=== PATIENT | female | born 1970 | race Two or more races ===

== ENCOUNTER 2025-05-22 22:15 | Inpatient (IN) | payer MEDICAID ==
[~2025-05-22] VITALS: Ht 157.5 cm; Wt 90.7 kg
[2025-05-22] MEDS ORDERED: MAG HYDROX/AL HYDROX/SIMETH 30 ML UDC PO PRN (22:30)
[2025-05-22] MEDS ORDERED: LORAZEPAM 1 MG TABLET PO PRN (22:30)
[2025-05-22] MEDS ORDERED: MAGNESIUM HYDROXIDE 30 ML UDC PO PRN (22:30)
[2025-05-22] MEDS ORDERED: ACETAMINOPHEN 325 MG TABLET PO PRN (22:30)
[2025-05-22] MEDS ORDERED: LORAZEPAM 0.5 MG TABLET PO PRN (22:30)
[2025-05-22] MEDS ORDERED: ZOLPIDEM TARTRATE 5 MG TABLET PO PRN ×2 (22:30)
[2025-05-22] MEDS ORDERED: FURO40TA5 PO (22:53)
[2025-05-22] MEDS ORDERED: PYRI50TA15 PO (22:53)
[2025-05-22] MEDS ORDERED: ASPI-1169 PO (22:53)
[2025-05-22] MEDS ORDERED: ATOR40TA PO (22:53)
[2025-05-22] MEDS ORDERED: ESCI5TAB PO (22:53)
[2025-05-22] MEDS ORDERED: METO25TA6 PO (22:53)
[2025-05-22] MEDS ORDERED: HYDR-4076 PO (22:53)
[2025-05-22] MEDS ORDERED: GABA300C PO (22:53)
[2025-05-22] MEDS: BLOOD SUGAR DIAGNOSTIC 1 EACH STRIP IN ONE (23:04)
[2025-05-23 00:19] VITALS: BP 167/79; TEMP 97.5; O2SAT 97
[2025-05-23 08:00] VITALS: BP 125/86; TEMP 98.4; O2SAT 97
[2025-05-23 08:27] LABS: ASPARTATE AMINOTRANSFERASE 18.0 U/L (15-37); CALCIUM, SERUM 8.6 mg/dL (8.5-10.1); CREATININE 5.3 mg/dL (0.6-1.3); SODIUM SERUM 137.0 mmol/L (136-145); TOTAL PROTEIN, SERUM 6.6 g/dL (6.4-8.2); UREA NITROGEN, BLOOD 53.0 mg/dL (7-18)
[2025-05-23 08:30] LABS: LDL 85 mg/dL (0-99)
[2025-05-23] MEDS: GABAPENTIN 100 MG CAPSULE PO SCH (13:00)
[2025-05-23] MEDS: CIPROFLOXACIN HCL 250 MG TABLET PO SCH (14:00)
[2025-05-23] MEDS: OLANZAPINE 10 MG VIAL IM STA (14:01)
[2025-05-23] MEDS ORDERED: LORA-259 PO (15:38)
[2025-05-23] MEDS ORDERED: ZOLP5TAB2 PO (15:38)
[2025-05-23] MEDS ORDERED: GABA100C PO (15:38)
[2025-05-23] MEDS ORDERED: MAGN400O6 PO (15:38)
[2025-05-23] MEDS ORDERED: LITH150C PO (15:38)
[2025-05-23] MEDS ORDERED: MAG30ORA PO (15:38)
[2025-05-23] MEDS ORDERED: CIPR500T5 PO (15:38)
[2025-05-23] MEDS ORDERED: ACET325T53 PO (15:38)
[2025-05-23] MEDS ORDERED: LITHIUM CARBONATE 150 MG CAPSULE PO SCH (17:00)
[2025-05-24] MEDS ORDERED: ESCITALOPRAM OXALATE (10 MG) 10 MG TABLET PO SCH (09:00)
== END 2025-05-23 14:49 | disposition short-term general hospital (02) | DRG 753 ==
LOC: GPS 22:15
PROVIDERS: ADMIT Psychiatry & Neurology Psychiatry; ATTEND Nurse Practitioner Acute Care
DX: F31.5 Bipolar disorder, current episode depressed, severe, with psychotic features (principal); F25.0 Schizoaffective disorder, bipolar type; Z73.6 Limitation of activities due to disability
CPT/HCPCS: 36415; 80053-TC; 80061-TC; 82962-TC; 87081-TC; 97116-TC; 97530-TC; J3490

== ENCOUNTER 2025-05-23 15:21 | Inpatient (IN) | payer MEDICAID ==
[~2025-05-23] VITALS: Ht 154.9 cm; Wt 76.7 kg
[~2025-05-23 15:21] MED LIST: ASPI-1169 PO; ATOR40TA PO; ESCI5TAB PO; FURO40TA5 PO; GABA300C PO; HYDR-4076 PO; METO25TA6 PO; PYRI50TA15 PO
[2025-05-23] MEDS ORDERED: GABA100C PO (15:38)
[2025-05-23] MEDS ORDERED: LITH150C PO (15:38)
[2025-05-23] MEDS ORDERED: MAGN400O6 PO (15:38)
[2025-05-23] MEDS ORDERED: LORA-259 PO (15:38)
[2025-05-23] MEDS ORDERED: ZOLP5TAB2 PO (15:38)
[2025-05-23] MEDS ORDERED: ACET325T53 PO (15:38)
[2025-05-23] MEDS ORDERED: CIPR500T5 PO (15:38)
[2025-05-23] MEDS ORDERED: MAG30ORA PO (15:38)
[2025-05-23 20:00] VITALS: BP 134/94; TEMP 97.2; O2SAT 96
[2025-05-23] MEDS: HEPARIN SODIUM, PORCINE 5000 UNITS/1 ML VIAL SQ SCH (21:04)
[2025-05-23] MEDS: IV NS 0.9% 1,000 ML IV PRN (21:12)
[2025-05-23 22:20] VITALS: BP 134/94; TEMP 97.2; O2SAT 96
[2025-05-24 04:00] VITALS: BP 163/99; TEMP 99.3; O2SAT 97
[2025-05-24 06:35] LABS: PLATELET COUNT (AUTO) 194 K/uL (150-450); RED BLOOD CELL COUNT(AUTO) 2.76 MIL/uL (4.0-5.2); RED CELL DISTRIBUTION WIDTH 14.8 % (11.5-15.0); WHITE BLOOD COUNT (AUTO) 6.9 K/uL (4.3-11.0)
[2025-05-24 07:07] LABS: CALCIUM, SERUM 8.0 mg/dL (8.5-10.1); CREATININE 5.1 mg/dL (0.6-1.3); PHOSPHORUS 5.5 mg/dL (2.5-4.9); SODIUM SERUM 141.0 mmol/L (136-145); UREA NITROGEN, BLOOD 52.0 mg/dL (7-18)
[2025-05-24 08:00] VITALS: BP 175/96; TEMP 98.2; O2SAT 95
[2025-05-24 12:00] VITALS: BP 179/107; TEMP 98.7; O2SAT 95
[2025-05-24] MEDS: CITRIC ACID/SODIUM CITRATE (BICITRA)15 ML UDC PO SCH (12:14)
[2025-05-24 16:00] VITALS: BP 175/114; TEMP 98.5; O2SAT 99
[2025-05-24] MEDS: OLANZAPINE 5 MG TABLET PO SCH (17:00)
[2025-05-24] MEDS: NIFEDIPINE XL 60 MG TAB.ER.24 PO SCH (17:30)
[2025-05-24 23:37] LABS: CALCIUM, SERUM 8.6 mg/dL (8.5-10.1); CREATININE 5.0 mg/dL (0.6-1.3); SODIUM SERUM 141.0 mmol/L (136-145); UREA NITROGEN, BLOOD 51.0 mg/dL (7-18)
[2025-05-25 04:00] VITALS: BP 161/97; TEMP 98.1; O2SAT 97
[2025-05-25 08:00] VITALS: BP 120/85; TEMP 98.6; O2SAT 93
[2025-05-25 09:07] LABS: HEPATITIS B SURFACE AB (QUAL) Non Reactive (.)
[2025-05-25 10:08] LABS: *ANA ANTI-CENTROMERE B AB <0.2 AI (0.0-0.9); *ANA ANTI-DNA(DS) AB, QN <1 IU/mL (0-9); *ANA ANTI-JO-1 <0.2 AI (0.0-0.9); *ANA ANTICHROMATIN ANTIBODY <0.2 AI (0.0-0.9); *ANA RNP ANTIBODIES <0.2 AI (0.0-0.9); *ANA SJOGREN'S ANTI-SS-A <0.2 AI (0.0-0.9); *ANA SJOGREN'S ANTI-SS-B <0.2 AI (0.0-0.9); *ANAANTI-SCLERODERMA-70 AB <0.2 AI (0.0-0.9); *ANASMITH AB <0.2 AI (0.0-0.9); COMPLEMENT C3, SERUM 134 mg/dL (82-167); COMPLEMENT C4, SERUM 32 mg/dL (12-38)
[2025-05-25 16:00] VITALS: BP 95/62; TEMP 97.5; O2SAT 95
[2025-05-25 20:00] VITALS: BP 113/79; TEMP 98.2; O2SAT 95
[2025-05-25] MEDS: LORAZEPAM 1 MG TABLET PO PRN (23:32)
[2025-05-25] MEDS: ACETAMINOPHEN 325 MG TABLET PO PRN (23:36)
[2025-05-26] MEDS ORDERED: NITROGLYCERIN 0.4 MG/TAB BOTTLE SL PRN (01:00)
[2025-05-26] MEDS: ASPIRIN 325 MG TABLET PO ONE (01:39)
[2025-05-26 04:00] VITALS: BP 113/79; TEMP 98.2; O2SAT 95
[2025-05-26 06:00] LABS: PLATELET COUNT (AUTO) 262 K/uL (150-450); RED BLOOD CELL COUNT(AUTO) 2.94 MIL/uL (4.0-5.2); RED CELL DISTRIBUTION WIDTH 14.6 % (11.5-15.0); WHITE BLOOD COUNT (AUTO) 9.3 K/uL (4.3-11.0)
[2025-05-26 08:00] VITALS: BP 135/90; TEMP 97.7; O2SAT 96
[2025-05-26 08:28] LABS: ASPARTATE AMINOTRANSFERASE 22.0 U/L (15-37); CALCIUM, SERUM 8.4 mg/dL (8.5-10.1); CREATININE 4.9 mg/dL (0.6-1.3); PHOSPHORUS 5.0 mg/dL (2.5-4.9); SODIUM SERUM 139.0 mmol/L (136-145); TOTAL PROTEIN, SERUM 6.8 g/dL (6.4-8.2); UREA NITROGEN, BLOOD 49.0 mg/dL (7-18)
[2025-05-26] MEDS: ASPIRIN 81 MG TAB.CHEW PO SCH (09:19)
[2025-05-27 04:00] VITALS: BP 109/80; TEMP 98; O2SAT 100
[2025-05-27 08:00] VITALS: BP 101/68; TEMP 98.2
[2025-05-27 13:12] LABS: PTH, INTACT 275 pg/mL (15-65)
[2025-05-27 16:00] VITALS: BP 156/58; TEMP 98.2; O2SAT 96
[2025-05-27 20:00] VITALS: BP 180/75; TEMP 99; O2SAT 97
[2025-05-28 04:00] VITALS: BP 126/90; TEMP 98.4; O2SAT 99
[2025-05-28 06:41] LABS: PLATELET COUNT (AUTO) 227 K/uL (150-450); RED BLOOD CELL COUNT(AUTO) 2.87 MIL/uL (4.0-5.2); RED CELL DISTRIBUTION WIDTH 14.6 % (11.5-15.0); WHITE BLOOD COUNT (AUTO) 6.5 K/uL (4.3-11.0)
[2025-05-28 06:56] LABS: ASPARTATE AMINOTRANSFERASE 20.0 U/L (15-37); CALCIUM, SERUM 8.4 mg/dL (8.5-10.1); CREATININE 5.2 mg/dL (0.6-1.3); PHOSPHORUS 5.0 mg/dL (2.5-4.9); SODIUM SERUM 142.0 mmol/L (136-145); TOTAL PROTEIN, SERUM 6.5 g/dL (6.4-8.2); UREA NITROGEN, BLOOD 50.0 mg/dL (7-18)
[2025-05-28] MEDS: CITRIC ACID/SODIUM CITRATE (BICITRA)15 ML UDC PO SCH (12:06)
[2025-05-28 20:00] VITALS: BP 205/83; TEMP 97.5; O2SAT 96
[2025-05-29 04:00] VITALS: BP 191/71; TEMP 97.3; O2SAT 96
[2025-05-29] MEDS ORDERED: hydrALAZINE HCL IV 20 MG VIAL IV PRN (06:00)
[2025-05-29 08:00] VITALS: O2SAT 94
[2025-05-29 13:14] VITALS: O2SAT 96
[2025-05-29 16:00] VITALS: TEMP 97.7; O2SAT 98
[2025-05-29 19:06] LABS: *ANCA ATYPICAL p-ANCA <1:20 titer (Neg:<1:20); *ANCA CYTOPLASMIC (C-ANCA) <1:20 titer (Neg:<1:20); *ANCA PERINUCLEAR (P-ANCA) <1:20 titer (Neg:<1:20)
[2025-05-30] MEDS: HYDROCODONE/APAP 5/325MG TABLET PO PRN (01:13)
[2025-05-30] MEDS: OLANZAPINE 10 MG VIAL IM ONE (17:10)
[2025-05-30 20:00] VITALS: BP 229/120; TEMP 99.7; O2SAT 95
[2025-05-31 04:00] VITALS: BP 228/103; TEMP 98.2; O2SAT 98
[2025-05-31 08:40] VITALS: BP 229/120; TEMP 99.7; O2SAT 95
[2025-05-31 16:00] VITALS: BP 229/120; O2SAT 95
[2025-05-31 20:00] VITALS: BP 229/120; TEMP 99.7; O2SAT 95
[2025-05-31 22:47] VITALS: BP 149/71; TEMP 98.2; O2SAT 95
[2025-06-01 04:00] VITALS: BP 169/87
[2025-06-01 08:00] VITALS: BP 140/91; TEMP 98.3; O2SAT 95
[2025-06-01] MEDS: OLANZAPINE 10 MG VIAL IM ONE (09:26)
[2025-06-01] MEDS: LORAZEPAM INJ 2 MG/ML VIAL IM ONE (09:47)
[2025-06-01] MEDS ORDERED: LORAZEPAM 1 MG TABLET PO PRN (10:00)
[2025-06-01] MEDS: OLANZAPINE 10 MG VIAL IM PRN (14:49)
[2025-06-01 16:00] VITALS: BP 132/84; TEMP 98.3; O2SAT 95
[2025-06-02] MEDS: TEMAZEPAM 15 MG CAPSULE PO PRN (00:29)
[2025-06-03 08:00] VITALS: BP 157/78; TEMP 97.7; O2SAT 97
[2025-06-03 16:00] VITALS: BP 140/51; TEMP 97.9; O2SAT 99
[2025-06-03 20:00] VITALS: BP 140/51; TEMP 97.9; O2SAT 99
[2025-06-04 04:00] VITALS: BP 140/51; TEMP 97; O2SAT 99
[2025-06-04 07:05] LABS: CALCIUM, SERUM 7.9 mg/dL (8.5-10.1); CREATININE 5.6 mg/dL (0.6-1.3); SODIUM SERUM 141.0 mmol/L (136-145); UREA NITROGEN, BLOOD 52.0 mg/dL (7-18)
[2025-06-04 07:07] LABS: PLATELET COUNT (AUTO) 304 K/uL (150-450); RED BLOOD CELL COUNT(AUTO) 2.82 MIL/uL (4.0-5.2); RED CELL DISTRIBUTION WIDTH 14.3 % (11.5-15.0); WHITE BLOOD COUNT (AUTO) 7.5 K/uL (4.3-11.0)
[2025-06-04 08:00] VITALS: BP 158/79; TEMP 97.9; O2SAT 96
[2025-06-04 16:00] VITALS: BP 143/69; TEMP 98; O2SAT 94
[2025-06-04 20:00] VITALS: BP 162/72; TEMP 98.6; O2SAT 97
[2025-06-05 04:00] VITALS: BP 153/71; TEMP 98.2; O2SAT 96
[2025-06-05 07:30] VITALS: BP 138/67; TEMP 98.1; O2SAT 97
[2025-06-05 08:00] VITALS: BP 138/67; TEMP 98.1; O2SAT 97
[2025-06-05 15:55] VITALS: BP 120/72; TEMP 98.4; O2SAT 93
[2025-06-05 16:00] VITALS: BP 120/72; TEMP 98.4; O2SAT 93
[2025-06-06 04:00] VITALS: BP 151/79; TEMP 97.8; O2SAT 96
[2025-06-06 07:23] LABS: CALCIUM, SERUM 8.1 mg/dL (8.5-10.1); CREATININE 5.3 mg/dL (0.6-1.3); SODIUM SERUM 147.0 mmol/L (136-145); UREA NITROGEN, BLOOD 47.0 mg/dL (7-18)
[2025-06-06 07:26] LABS: PLATELET COUNT (AUTO) 280 K/uL (150-450); RED BLOOD CELL COUNT(AUTO) 2.61 MIL/uL (4.0-5.2); RED CELL DISTRIBUTION WIDTH 14.0 % (11.5-15.0); WHITE BLOOD COUNT (AUTO) 7.0 K/uL (4.3-11.0)
[2025-06-06 08:00] VITALS: BP 147/73; TEMP 98.1; O2SAT 93
[2025-06-06 15:07] LABS: *SPE A/G RATIO 0.5 (0.7-1.7); *SPE ALBUMIN 2.0 g/dL (2.9-4.4); *SPE ALPHA-1-GLOBULIN 0.3 g/dL (0.0-0.4); *SPE ALPHA-2-GLOBULIN 1.1 g/dL (0.4-1.0); *SPE BETA GLOBULIN 1.0 g/dL (0.7-1.3); *SPE GLOBULIN, TOTAL 3.7 g/dL (2.2-3.9); *SPE M-SPIKE Not Observed g/dL (Not Observed); *SPE PROTEIN TOTAL 5.7 g/dL (6.0-8.5); *SPEGAMMA GLOBULIN 1.2 g/dL (0.4-1.8)
[2025-06-06 16:00] VITALS: BP 148/76; TEMP 98.3; O2SAT 95
[2025-06-06 20:00] VITALS: BP 167/62; TEMP 98; O2SAT 100
[2025-06-07 04:00] VITALS: BP 168/75; TEMP 98.2; O2SAT 100
[2025-06-07 07:32] LABS: PLATELET COUNT (AUTO) 320 K/uL (150-450); RED BLOOD CELL COUNT(AUTO) 2.64 MIL/uL (4.0-5.2); RED CELL DISTRIBUTION WIDTH 14.0 % (11.5-15.0); WHITE BLOOD COUNT (AUTO) 8.1 K/uL (4.3-11.0)
[2025-06-07 08:00] VITALS: BP 182/73; TEMP 98; O2SAT 94
[2025-06-07 08:20] LABS: ASPARTATE AMINOTRANSFERASE 17.0 U/L (15-37); CALCIUM, SERUM 8.6 mg/dL (8.5-10.1); CREATININE 5.7 mg/dL (0.6-1.3); PHOSPHORUS 6.0 mg/dL (2.5-4.9); SODIUM SERUM 145.0 mmol/L (136-145); TOTAL PROTEIN, SERUM 6.5 g/dL (6.4-8.2); UREA NITROGEN, BLOOD 43.0 mg/dL (7-18)
[2025-06-07] MEDS ORDERED: CLONIDINE HCL 0.1 MG TABLET PO PRN (09:00)
[2025-06-07 16:00] VITALS: BP 128/84; TEMP 98; O2SAT 98
[2025-06-07 16:46] VITALS: BP 163/92; TEMP 97.6; O2SAT 94
[2025-06-07 20:00] VITALS: BP 145/96; TEMP 98.4; TEMP 99; O2SAT 95
[2025-06-08 04:00] VITALS: BP 126/100; TEMP 98; O2SAT 98
[2025-06-08 06:53] LABS: PLATELET COUNT (AUTO) 364 K/uL (150-450); RED BLOOD CELL COUNT(AUTO) 2.73 MIL/uL (4.0-5.2); RED CELL DISTRIBUTION WIDTH 14.1 % (11.5-15.0); WHITE BLOOD COUNT (AUTO) 9.5 K/uL (4.3-11.0)
[2025-06-08 07:16] LABS: ASPARTATE AMINOTRANSFERASE 20.0 U/L (15-37); CALCIUM, SERUM 8.2 mg/dL (8.5-10.1); CREATININE 6.0 mg/dL (0.6-1.3); PHOSPHORUS 5.8 mg/dL (2.5-4.9); SODIUM SERUM 140.0 mmol/L (136-145); TOTAL PROTEIN, SERUM 7.2 g/dL (6.4-8.2); UREA NITROGEN, BLOOD 47.0 mg/dL (7-18)
[2025-06-08 08:00] VITALS: BP 154/68; TEMP 97.7; O2SAT 94
[2025-06-08 13:57] VITALS: BP 139/70; TEMP 98; O2SAT 94
[2025-06-08] MEDS: SEVELAMER CARBONATE 800 MG TABLET PO SCH (14:02)
[2025-06-08 16:00] VITALS: BP 159/64; TEMP 98.2; O2SAT 95
[2025-06-08 16:06] VITALS: BP 159/64; TEMP 98.2; O2SAT 95
[2025-06-08 20:00] VITALS: BP 150/95; TEMP 98.1; O2SAT 97
[2025-06-09 04:00] VITALS: BP 149/61
[2025-06-09 08:00] VITALS: BP 141/79; TEMP 98.4; O2SAT 95
[2025-06-09 08:16] LABS: ASPARTATE AMINOTRANSFERASE 21.0 U/L (15-37); CALCIUM, SERUM 8.3 mg/dL (8.5-10.1); CREATININE 6.0 mg/dL (0.6-1.3); PHOSPHORUS 5.1 mg/dL (2.5-4.9); SODIUM SERUM 141.0 mmol/L (136-145); TOTAL PROTEIN, SERUM 6.5 g/dL (6.4-8.2); UREA NITROGEN, BLOOD 51.0 mg/dL (7-18)
[2025-06-09 09:01] LABS: PLATELET COUNT (AUTO) 305 K/uL (150-450); RED BLOOD CELL COUNT(AUTO) 2.80 MIL/uL (4.0-5.2); RED CELL DISTRIBUTION WIDTH 14.0 % (11.5-15.0); WHITE BLOOD COUNT (AUTO) 16.6 K/uL (4.3-11.0)
[2025-06-09 20:00] VITALS: BP 136/71; TEMP 98.1; O2SAT 95
[2025-06-10 08:00] VITALS: BP 106/59; TEMP 98.4; O2SAT 98
[2025-06-10 08:01] LABS: CREATININE 5.7 mg/dL (0.6-1.3); PHOSPHORUS 4.4 mg/dL (2.5-4.9); SODIUM SERUM 143.0 mmol/L (136-145); UREA NITROGEN, BLOOD 48.0 mg/dL (7-18)
[2025-06-10 08:07] LABS: PLATELET COUNT (AUTO) 236 K/uL (150-450); RED BLOOD CELL COUNT(AUTO) 2.26 MIL/uL (4.0-5.2); RED CELL DISTRIBUTION WIDTH 14.0 % (11.5-15.0); WHITE BLOOD COUNT (AUTO) 11.9 K/uL (4.3-11.0)
[2025-06-10 08:37] LABS: CALCIUM, SERUM 8.4 mg/dL (8.5-10.1)
[2025-06-10 09:00] VITALS: BP 106/59; TEMP 98.4; O2SAT 98
[2025-06-10] MEDS: POTASSIUM CHLORIDE 20 MEQ TAB.PRT.SR PO ONE (10:10)
[2025-06-10] MEDS: EPOETIN ALFA (10,000 UNIT) 10,000 UNIT/ML VIAL SQ ONE (11:08)
[2025-06-10 11:14] LABS: LYMPHOCYTES % (MANUAL) 4 % (16-48); MONOCYTES % (MANUAL) 2 % (0-11.0); NEUTROPHILS % (MANUAL) 94 (42-76)
[2025-06-10 11:15] LABS: PLATELET ESTIMATE ADEQUATE
[2025-06-10 16:00] VITALS: BP 127/78; TEMP 99.1; O2SAT 98
[2025-06-10 20:36] VITALS: BP 149/98; TEMP 97.9; O2SAT 94
[2025-06-10 21:00] VITALS: BP 149/98; TEMP 97.9; O2SAT 94
[2025-06-11 07:00] LABS: PLATELET COUNT (AUTO) 225 K/uL (150-450); RED BLOOD CELL COUNT(AUTO) 2.45 MIL/uL (4.0-5.2); RED CELL DISTRIBUTION WIDTH 14.0 % (11.5-15.0); WHITE BLOOD COUNT (AUTO) 10.3 K/uL (4.3-11.0)
[2025-06-11 07:07] LABS: ASPARTATE AMINOTRANSFERASE 36.0 U/L (15-37); CALCIUM, SERUM 8.2 mg/dL (8.5-10.1); CREATININE 5.5 mg/dL (0.6-1.3); PHOSPHORUS 4.4 mg/dL (2.5-4.9); SODIUM SERUM 139.0 mmol/L (136-145); TOTAL PROTEIN, SERUM 6.3 g/dL (6.4-8.2); UREA NITROGEN, BLOOD 42.0 mg/dL (7-18)
[2025-06-11 08:00] VITALS: BP 158/63; TEMP 98.1; O2SAT 95
[2025-06-11 16:00] VITALS: BP 125/90; TEMP 98.1; O2SAT 95
[2025-06-11 20:00] VITALS: BP 156/92; TEMP 98.2; O2SAT 96
[2025-06-11 21:13] VITALS: BP 156/92; TEMP 98.2; O2SAT 96
[2025-06-12] VITALS (33 sets, daily range): BP systolic 64–174; BP diastolic 33–89; TEMP 98.1–98.4; O2SAT 91–100
[2025-06-12 08:38] LABS: ABG BASE EXCESS 3.9 mmol/L (-2.0-3.0); ABG OXYGEN SATURATION 98.8 % (94.0-98.0); ABG PCO2 43.5 mmHg (32.0-45.0); ABG PH 7.434 (7.350-7.450); ABG PO2 171.0 mmHg (83.0-108.0); ABG TOTAL HEMOGLOBIN 7.4 G/dL (12.0-16.0); FLOW, BLOOD GAS 15.00 L/min (0.00-30.00); FRACTIONATED INSPIRED OXYGEN 100.0 %; SITE, ABG RIGHT RADIAL
[2025-06-12 16:45] LABS: CALCIUM, SERUM 8.8 mg/dL (8.5-10.1); CREATININE 5.9 mg/dL (0.6-1.3); SODIUM SERUM 147.0 mmol/L (136-145); UREA NITROGEN, BLOOD 47.0 mg/dL (7-18)
[2025-06-12 17:04] LABS: PLATELET COUNT (AUTO) 238 K/uL (150-450); RED BLOOD CELL COUNT(AUTO) 2.17 MIL/uL (4.0-5.2); RED CELL DISTRIBUTION WIDTH 14.0 % (11.5-15.0); WHITE BLOOD COUNT (AUTO) 7.9 K/uL (4.3-11.0)
[2025-06-12] MEDS: PROPOFOL 100 ML IV PRN (17:18)
[2025-06-12] MEDS: PHENYLEPHRINE 100 MG in IV NS 0.9% 240 ML IV PRN (18:38)
[2025-06-12] MEDS: ALTEPLASE CATHFLO 2 MG/VIAL XX ONE (19:38)
[2025-06-12 20:17] LABS: ABG BASE EXCESS 6.7 mmol/L (-2.0-3.0); ABG OXYGEN SATURATION 99.1 % (94.0-98.0); ABG PCO2 39.4 mmHg (32.0-45.0); ABG PH 7.505 (7.350-7.450); ABG PO2 232.2 mmHg (83.0-108.0); ABG TOTAL HEMOGLOBIN 7.1 G/dL (12.0-16.0); FRACTIONATED INSPIRED OXYGEN 100.0 %; PEEP,BG 0 cm H2O; SET RATE, BG 18.0; SITE, ABG LEFT RADIAL; VT, ABG 500 mL
[2025-06-12] MEDS ORDERED: CALCIUM CHLORIDE 1,000 MG/10 ML DISP.SYRIN IV ONE (20:24)
[2025-06-12] MEDS ORDERED: SODIUM BICARBONATE SYR 50 MEQ/50 ML DISP.SYRIN IV ONE (20:25)
[2025-06-12] MEDS ORDERED: EPINEPHRINE (1:10,000) SYRINGE 1 MG/10 ML DISP.SYRIN IVP ONE (20:25)
[2025-06-12 20:26] LABS: LYMPHOCYTES % (MANUAL) 15 % (16-48); MONOCYTES % (MANUAL) 7 % (0-11.0); NEUTROPHILS % (MANUAL) 78 (42-76); PLATELET ESTIMATE ADEQUATE
[2025-06-13] VITALS (49 sets, daily range): BP systolic 102–149; BP diastolic 47–88; TEMP 97.9–98.3; O2SAT 50–100
[2025-06-13] MEDS: ONDANSETRON HCL/PF 4 MG/2 ML VIAL IVP PRN (03:08)
[2025-06-13 04:34] LABS: PLATELET COUNT (AUTO) 185 K/uL (150-450); RED BLOOD CELL COUNT(AUTO) 2.28 MIL/uL (4.0-5.2); RED CELL DISTRIBUTION WIDTH 14.6 % (11.5-15.0); WHITE BLOOD COUNT (AUTO) 10.8 K/uL (4.3-11.0)
[2025-06-13 04:37] LABS: ASPARTATE AMINOTRANSFERASE 45.0 U/L (15-37); CALCIUM, SERUM 8.5 mg/dL (8.5-10.1); CREATININE 3.4 mg/dL (0.6-1.3); PHOSPHORUS 3.2 mg/dL (2.5-4.9); SODIUM SERUM 138.0 mmol/L (136-145); TOTAL PROTEIN, SERUM 6.3 g/dL (6.4-8.2); UREA NITROGEN, BLOOD 25.0 mg/dL (7-18)
[2025-06-13 05:20] LABS: EOSINOPHILS % (MANUAL) 1 % (0-4); LYMPHOCYTES % (MANUAL) 7 % (16-48); MONOCYTES % (MANUAL) 3 % (0-11.0); NEUTROPHILS % (MANUAL) 89 (42-76); PLATELET ESTIMATE ADEQUATE
[2025-06-13] MEDS ORDERED: PIPERACILLIN /TAZOBACTAM 3.375 G in IV D5W 50 ML IV SCH (14:00)
[2025-06-13] MEDS: PIPERACILLIN /TAZOBACTAM 2.25 G in IV D5W 50 ML IV SCH (15:17)
[2025-06-14] VITALS (25 sets, daily range): BP systolic 69–138; BP diastolic 54–95; TEMP 98.1–98.9; O2SAT 92–99
[2025-06-14 04:13] LABS: PLATELET COUNT (AUTO) 223 K/uL (150-450); RED BLOOD CELL COUNT(AUTO) 2.49 MIL/uL (4.0-5.2); RED CELL DISTRIBUTION WIDTH 14.9 % (11.5-15.0); WHITE BLOOD COUNT (AUTO) 9.7 K/uL (4.3-11.0)
[2025-06-14 04:29] LABS: ASPARTATE AMINOTRANSFERASE 28.0 U/L (15-37); CALCIUM, SERUM 8.2 mg/dL (8.5-10.1); CREATININE 4.9 mg/dL (0.6-1.3); PHOSPHORUS 3.4 mg/dL (2.5-4.9); SODIUM SERUM 144.0 mmol/L (136-145); TOTAL PROTEIN, SERUM 5.8 g/dL (6.4-8.2); UREA NITROGEN, BLOOD 31.0 mg/dL (7-18)
[2025-06-14] MEDS: POTASSIUM CL. PREMIX PERIPHER. 50 ML IV SCH (09:30)
[2025-06-14] MEDS: EPOETIN ALFA (10,000 UNIT) 10,000 UNIT/ML VIAL SQ SCH (14:19)
[2025-06-14 14:35] LABS: ABG BASE EXCESS 8.4 mmol/L (-2.0-3.0); ABG OXYGEN SATURATION 93.5 % (94.0-98.0); ABG PCO2 38.2 mmHg (32.0-45.0); ABG PH 7.536 (7.350-7.450); ABG PO2 68.1 mmHg (83.0-108.0); ABG TOTAL HEMOGLOBIN 8.5 G/dL (12.0-16.0); FRACTIONATED INSPIRED OXYGEN 40.0 %; PEEP,BG 0 cm H2O; SET RATE, BG 18.0; SITE, ABG RIGHT RADIAL; VT, ABG 450 mL
[2025-06-15] VITALS (50 sets, daily range): BP systolic 66–134; BP diastolic 49–92; TEMP 97.7–98.8; O2SAT 95–100
[2025-06-15] MEDS ORDERED: DEXTROSE 50%-WATER 50 ML DISP.SYRIN IVP PRN (04:00)
[2025-06-15 04:09] LABS: PLATELET COUNT (AUTO) 239 K/uL (150-450); RED BLOOD CELL COUNT(AUTO) 2.56 MIL/uL (4.0-5.2); RED CELL DISTRIBUTION WIDTH 14.5 % (11.5-15.0); WHITE BLOOD COUNT (AUTO) 11.6 K/uL (4.3-11.0)
[2025-06-15 04:20] LABS: ASPARTATE AMINOTRANSFERASE 24.0 U/L (15-37); CALCIUM, SERUM 8.0 mg/dL (8.5-10.1); CREATININE 3.6 mg/dL (0.6-1.3); PHOSPHORUS 2.8 mg/dL (2.5-4.9); SODIUM SERUM 142.0 mmol/L (136-145); TOTAL PROTEIN, SERUM 6.1 g/dL (6.4-8.2); UREA NITROGEN, BLOOD 20.0 mg/dL (7-18)
[2025-06-15] MEDS: DEXTROSE 50%-WATER 50 ML DISP.SYRIN IVP ONE (04:21)
[2025-06-15] MEDS: SEVELAMER CARBONATE 800 MG POWD.PACK GT SCH (09:26)
[2025-06-15] MEDS: PHENYLEPHRINE 100 MG in IV NS 0.9% 240 ML IV PRN (13:17)
[2025-06-15] MEDS: PHENYLEPHRINE 50 MG in IV NS 0.9% 245 ML IV PRN (19:03)
[2025-06-16] VITALS (76 sets, daily range): BP systolic 85–148; BP diastolic 45–118; TEMP 98.6–100; O2SAT 96–100
[2025-06-16] MEDS: ALTEPLASE CATHFLO 2 MG/VIAL XX ONE (00:43)
[2025-06-16 04:28] LABS: PLATELET COUNT (AUTO) 249 K/uL (150-450); RED BLOOD CELL COUNT(AUTO) 2.52 MIL/uL (4.0-5.2); RED CELL DISTRIBUTION WIDTH 14.5 % (11.5-15.0); WHITE BLOOD COUNT (AUTO) 10.8 K/uL (4.3-11.0)
[2025-06-16 04:43] LABS: ASPARTATE AMINOTRANSFERASE 19.0 U/L (15-37); CALCIUM, SERUM 7.5 mg/dL (8.5-10.1); CREATININE 4.7 mg/dL (0.6-1.3); PHOSPHORUS 4.3 mg/dL (2.5-4.9); SODIUM SERUM 144.0 mmol/L (136-145); TOTAL PROTEIN, SERUM 5.9 g/dL (6.4-8.2); UREA NITROGEN, BLOOD 24.0 mg/dL (7-18)
[2025-06-16] MEDS: HEPARIN SODIUM, PORCINE 1,000 UNIT/ML VIAL IV PRN (13:29)
[2025-06-16] MEDS: NEPRO 1,000 ML BOTTLE GT PRN (18:24)
[2025-06-17] VITALS (62 sets, daily range): BP systolic 85–174; BP diastolic 59–94; TEMP 98.5–99.4; O2SAT 8–100
[2025-06-17 04:29] LABS: PLATELET COUNT (AUTO) 251 K/uL (150-450); RED BLOOD CELL COUNT(AUTO) 2.34 MIL/uL (4.0-5.2); RED CELL DISTRIBUTION WIDTH 14.6 % (11.5-15.0); WHITE BLOOD COUNT (AUTO) 9.2 K/uL (4.3-11.0)
[2025-06-17 04:42] LABS: ASPARTATE AMINOTRANSFERASE 18.0 U/L (15-37); CALCIUM, SERUM 7.9 mg/dL (8.5-10.1); CREATININE 3.7 mg/dL (0.6-1.3); PHOSPHORUS 4.6 mg/dL (2.5-4.9); SODIUM SERUM 139.0 mmol/L (136-145); TOTAL PROTEIN, SERUM 5.8 g/dL (6.4-8.2); UREA NITROGEN, BLOOD 18.0 mg/dL (7-18)
[2025-06-17 05:47] LABS: EOSINOPHILS % (MANUAL) 6 % (0-4); LYMPHOCYTES % (MANUAL) 15 % (16-48); MONOCYTES % (MANUAL) 5 % (0-11.0); NEUTROPHILS % (MANUAL) 74 (42-76); PLATELET ESTIMATE ADEQUATE
[2025-06-17] MEDS: ALBUMIN 25% 25 GM in PREMIX 1 EA IV PRN (15:35)
[2025-06-17] MEDS: HEPARIN SODIUM, PORCINE 1000 UNIT/1 ML VIAL IV ONE (19:23)
[2025-06-18] VITALS (64 sets, daily range): BP systolic 98–151; BP diastolic 61–117; TEMP 98–98.6; O2SAT 91–100
[2025-06-18 04:39] LABS: PLATELET COUNT (AUTO) 258 K/uL (150-450); RED BLOOD CELL COUNT(AUTO) 2.50 MIL/uL (4.0-5.2); RED CELL DISTRIBUTION WIDTH 14.5 % (11.5-15.0); WHITE BLOOD COUNT (AUTO) 9.6 K/uL (4.3-11.0)
[2025-06-18 04:53] LABS: ASPARTATE AMINOTRANSFERASE 23.0 U/L (15-37); CALCIUM, SERUM 8.3 mg/dL (8.5-10.1); CREATININE 3.4 mg/dL (0.6-1.3); PHOSPHORUS 4.3 mg/dL (2.5-4.9); SODIUM SERUM 141.0 mmol/L (136-145); TOTAL PROTEIN, SERUM 6.5 g/dL (6.4-8.2); UREA NITROGEN, BLOOD 15.0 mg/dL (7-18)
[2025-06-18] MEDS ORDERED: Z GUARD REMEDY 4 OZ OINT TP PRN (08:00)
[2025-06-18] MEDS: POTASSIUM CHLORIDE 20 MEQ POWDER PACKET GT ONE (08:55)
[2025-06-18] MEDS: Z GUARD REMEDY 4 OZ OINT TP SCH (08:55)
[2025-06-18 08:59] LABS: ABG BASE EXCESS 4.3 mmol/L (-2.0-3.0); ABG OXYGEN SATURATION 97.4 % (94.0-98.0); ABG PCO2 37.6 mmHg (32.0-45.0); ABG PH 7.488 (7.350-7.450); ABG PO2 101.8 mmHg (83.0-108.0); ABG TOTAL HEMOGLOBIN 8.8 G/dL (12.0-16.0); FRACTIONATED INSPIRED OXYGEN 40.0 %; PEEP,BG 5 cm H2O; SET RATE, BG 4.0; SITE, ABG RIGHT RADIAL
[2025-06-18] MEDS: CEFTRIAXONE 1 G in IV D5W 50 ML IV SCH (14:08)
[2025-06-19] VITALS (31 sets, daily range): BP systolic 83–141; BP diastolic 46–94; TEMP 98–99.1; O2SAT 87–100
[2025-06-19 04:01] LABS: PLATELET COUNT (AUTO) 283 K/uL (150-450); RED BLOOD CELL COUNT(AUTO) 2.85 MIL/uL (4.0-5.2); RED CELL DISTRIBUTION WIDTH 14.7 % (11.5-15.0); WHITE BLOOD COUNT (AUTO) 10.3 K/uL (4.3-11.0)
[2025-06-19 04:14] LABS: ASPARTATE AMINOTRANSFERASE 23.0 U/L (15-37); CALCIUM, SERUM 8.3 mg/dL (8.5-10.1); CREATININE 4.7 mg/dL (0.6-1.3); PHOSPHORUS 4.7 mg/dL (2.5-4.9); SODIUM SERUM 147.0 mmol/L (136-145); TOTAL PROTEIN, SERUM 6.6 g/dL (6.4-8.2); UREA NITROGEN, BLOOD 22.0 mg/dL (7-18)
[2025-06-19] MEDS: ALTEPLASE CATHFLO 2 MG/VIAL XX ONE (18:28)
[2025-06-19] MEDS: NEPRO 1,000 ML BOTTLE GT PRN (18:57)
[2025-06-20] VITALS (44 sets, daily range): BP systolic 78–139; BP diastolic 56–92; TEMP 98.4–99.2; O2SAT 87–100
[2025-06-20 04:29] LABS: PLATELET COUNT (AUTO) 309 K/uL (150-450); RED BLOOD CELL COUNT(AUTO) 2.73 MIL/uL (4.0-5.2); RED CELL DISTRIBUTION WIDTH 14.9 % (11.5-15.0); WHITE BLOOD COUNT (AUTO) 12.8 K/uL (4.3-11.0)
[2025-06-20 04:39] LABS: ASPARTATE AMINOTRANSFERASE 20.0 U/L (15-37); CALCIUM, SERUM 8.7 mg/dL (8.5-10.1); CREATININE 5.1 mg/dL (0.6-1.3); PHOSPHORUS 5.1 mg/dL (2.5-4.9); SODIUM SERUM 147.0 mmol/L (136-145); TOTAL PROTEIN, SERUM 6.5 g/dL (6.4-8.2); UREA NITROGEN, BLOOD 24.0 mg/dL (7-18)
[2025-06-20] MEDS ORDERED: CLONIDINE HCL 0.1 MG TABLET GT PRN (07:08)
[2025-06-20] MEDS: ASPIRIN 81 MG TAB.CHEW GT SCH (08:07)
[2025-06-20] MEDS: CITRIC ACID/SODIUM CITRATE (BICITRA)15 ML UDC GT SCH (08:07)
[2025-06-20] MEDS: POTASSIUM CHLORIDE 20 MEQ POWDER PACKET GT ONE (10:39)
[2025-06-20] MEDS ORDERED: HEPARIN-LOCK FLUSH PORCINE PF 100 UNITS/1 ML (10 ML)DISP.SYRIN IV PRN ×2 (17:30)
[2025-06-20] MEDS: HEPARIN-LOCK FLUSH PORCINE PF 100 UNITS/1 ML (10 ML)DISP.SYRIN IV PRN (20:03)
[2025-06-21] VITALS (21 sets, daily range): BP systolic 79–125; BP diastolic 59–93; TEMP 98–99.9; O2SAT 92–98
[2025-06-21] MEDS: HYDROCODONE/APAP 5/325MG TABLET GT PRN (02:08)
[2025-06-21 04:16] LABS: PLATELET COUNT (AUTO) 305 K/uL (150-450); RED BLOOD CELL COUNT(AUTO) 2.55 MIL/uL (4.0-5.2); RED CELL DISTRIBUTION WIDTH 14.7 % (11.5-15.0); WHITE BLOOD COUNT (AUTO) 11.3 K/uL (4.3-11.0)
[2025-06-21 04:31] LABS: ASPARTATE AMINOTRANSFERASE 16.0 U/L (15-37); CALCIUM, SERUM 8.6 mg/dL (8.5-10.1); CREATININE 3.9 mg/dL (0.6-1.3); PHOSPHORUS 3.6 mg/dL (2.5-4.9); SODIUM SERUM 141.0 mmol/L (136-145); TOTAL PROTEIN, SERUM 6.7 g/dL (6.4-8.2); UREA NITROGEN, BLOOD 16.0 mg/dL (7-18)
[2025-06-21 05:08] LABS: FOLIC ACID 7.8 ng/mL (>3.0); T3, FREE 1.2 pg/mL (2.0-4.4)
[2025-06-21] MEDS: HEPARIN SODIUM, PORCINE 1000 UNIT/1 ML VIAL IV PRN (19:28)
[2025-06-21] MEDS ORDERED: ALBUMIN 25% 100 ML IV ONE (20:40)
[2025-06-22] VITALS: BP 117/78; TEMP 99.5; O2SAT 97
[2025-06-22 04:00] VITALS: BP 92/59; TEMP 99.3; O2SAT 93
[2025-06-22 07:34] LABS: PLATELET COUNT (AUTO) 367 K/uL (150-450); RED BLOOD CELL COUNT(AUTO) 2.84 MIL/uL (4.0-5.2); RED CELL DISTRIBUTION WIDTH 15.2 % (11.5-15.0); WHITE BLOOD COUNT (AUTO) 13.4 K/uL (4.3-11.0)
[2025-06-22 08:00] VITALS: BP 90/48; TEMP 99; O2SAT 94
[2025-06-22 08:00] LABS: ASPARTATE AMINOTRANSFERASE 23.0 U/L (15-37); CALCIUM, SERUM 9.3 mg/dL (8.5-10.1); CREATININE 4.4 mg/dL (0.6-1.3); PHOSPHORUS 4.0 mg/dL (2.5-4.9); SODIUM SERUM 138.0 mmol/L (136-145); TOTAL PROTEIN, SERUM 7.2 g/dL (6.4-8.2); UREA NITROGEN, BLOOD 21.0 mg/dL (7-18)
[2025-06-22] MEDS: MIDODRINE HCL (5MG) 5 MG TABLET PO ONE (09:17)
[2025-06-22 12:00] VITALS: BP 93/72; TEMP 98.9; O2SAT 95
[2025-06-22 16:00] VITALS: BP 109/70; TEMP 99.1; O2SAT 95
[2025-06-22 20:00] VITALS: BP 107/66; TEMP 98.1; O2SAT 99
[2025-06-23] VITALS: BP 113/77; TEMP 99.3; O2SAT 100
[2025-06-23 04:00] VITALS: BP 108/86; TEMP 99.5; O2SAT 97
[2025-06-23 08:00] VITALS: BP 92/61; TEMP 98.1; O2SAT 97
[2025-06-23 16:00] VITALS: BP 124/74; TEMP 98.3; O2SAT 95
[2025-06-23 20:00] VITALS: BP 113/92; TEMP 98.2; O2SAT 98
[2025-06-23] MEDS: LORAZEPAM 1 MG TABLET GT PRN (22:37)
[2025-06-24 05:00] VITALS: BP 124/96; TEMP 97.7; O2SAT 94
[2025-06-24 07:31] LABS: CALCIUM, SERUM 9.4 mg/dL (8.5-10.1); CREATININE 6.5 mg/dL (0.6-1.3); PHOSPHORUS 5.2 mg/dL (2.5-4.9); SODIUM SERUM 141.0 mmol/L (136-145); UREA NITROGEN, BLOOD 28.0 mg/dL (7-18)
[2025-06-24 07:36] LABS: PLATELET COUNT (AUTO) 487 K/uL (150-450); RED BLOOD CELL COUNT(AUTO) 3.03 MIL/uL (4.0-5.2); RED CELL DISTRIBUTION WIDTH 16.1 % (11.5-15.0); WHITE BLOOD COUNT (AUTO) 10.1 K/uL (4.3-11.0)
[2025-06-24 08:00] VITALS: BP_SYST 120; BP_SYST 98; BP_DIAS 74; TEMP 98.1; O2SAT 100
[2025-06-24 12:00] VITALS: BP 108/75; TEMP 97.8; O2SAT 97
[2025-06-24] MEDS: OLANZAPINE 10 MG VIAL IM PRN (14:21)
[2025-06-24 16:00] VITALS: BP 96/70; TEMP 98.3; O2SAT 97
[2025-06-24 20:00] VITALS: BP 115/77; TEMP 98.2; O2SAT 98
[2025-06-25 04:00] VITALS: BP 134/98; TEMP 98.1; O2SAT 95
[2025-06-25 06:49] LABS: PLATELET COUNT (AUTO) 513 K/uL (150-450); RED BLOOD CELL COUNT(AUTO) 3.13 MIL/uL (4.0-5.2); RED CELL DISTRIBUTION WIDTH 17.1 % (11.5-15.0); WHITE BLOOD COUNT (AUTO) 10.2 K/uL (4.3-11.0)
[2025-06-25 07:12] LABS: CALCIUM, SERUM 9.6 mg/dL (8.5-10.1); PHOSPHORUS 7.1 mg/dL (2.5-4.9); SODIUM SERUM 142.0 mmol/L (136-145)
[2025-06-25 07:25] LABS: UREA NITROGEN, BLOOD 36.0 mg/dL (7-18)
[2025-06-25 07:47] LABS: CREATININE 8.1 mg/dL (0.6-1.3)
[2025-06-25 08:00] VITALS: BP 104/74; TEMP 98.1; O2SAT 99
[2025-06-25] MEDS: OLANZAPINE ZYDIS 5 MG TAB.RAPDIS PO SCH (10:38)
[2025-06-25 16:00] VITALS: BP 95/66; TEMP 98.2; O2SAT 99
[2025-06-25 20:00] VITALS: BP 98/83; TEMP 98; O2SAT 98
[2025-06-26 04:00] VITALS: BP 105/80; TEMP 97.9; O2SAT 98
[2025-06-26 06:46] LABS: PLATELET COUNT (AUTO) 521 K/uL (150-450); RED BLOOD CELL COUNT(AUTO) 3.38 MIL/uL (4.0-5.2); RED CELL DISTRIBUTION WIDTH 16.7 % (11.5-15.0); WHITE BLOOD COUNT (AUTO) 8.6 K/uL (4.3-11.0)
[2025-06-26 07:01] LABS: CALCIUM, SERUM 9.2 mg/dL (8.5-10.1); CREATININE 5.2 mg/dL (0.6-1.3); PHOSPHORUS 4.8 mg/dL (2.5-4.9); SODIUM SERUM 144.0 mmol/L (136-145); UREA NITROGEN, BLOOD 18.0 mg/dL (7-18)
[2025-06-26 08:00] VITALS: BP 124/80; TEMP 98.1; O2SAT 100
[2025-06-26 16:00] VITALS: BP 127/98; TEMP 97.9; O2SAT 97
[2025-06-26] MEDS: OLANZAPINE ZYDIS 5 MG TAB.RAPDIS PO SCH (17:52)
[2025-06-26 18:30] VITALS: BP 124/83; TEMP 98.1; O2SAT 94
[2025-06-26 20:00] VITALS: BP 131/95; TEMP 98.2; O2SAT 94
[2025-06-26 20:06] VITALS: BP 131/95; TEMP 98.2; O2SAT 94
[2025-06-27 07:30] VITALS: BP 120/85; TEMP 97.9; O2SAT 99
[2025-06-27 07:50] LABS: PLATELET COUNT (AUTO) 567 K/uL (150-450); RED BLOOD CELL COUNT(AUTO) 3.64 MIL/uL (4.0-5.2); RED CELL DISTRIBUTION WIDTH 16.8 % (11.5-15.0); WHITE BLOOD COUNT (AUTO) 8.4 K/uL (4.3-11.0)
[2025-06-27 08:00] VITALS: BP 120/85; TEMP 97.9; O2SAT 99
[2025-06-27 08:20] LABS: CALCIUM, SERUM 9.1 mg/dL (8.5-10.1); CREATININE 6.8 mg/dL (0.6-1.3); PHOSPHORUS 5.3 mg/dL (2.5-4.9); SODIUM SERUM 138.0 mmol/L (136-145); UREA NITROGEN, BLOOD 24.0 mg/dL (7-18)
[2025-06-27] MEDS: OLANZAPINE ZYDIS 5 MG TAB.RAPDIS PO SCH (12:07)
[2025-06-27 16:12] VITALS: BP 127/79; TEMP 98.1; O2SAT 96
[2025-06-27 20:00] VITALS: BP 127/93; TEMP 97.7; O2SAT 95
[2025-06-27 20:05] VITALS: BP 127/93; TEMP 97.7; O2SAT 95
[2025-06-28 07:09] LABS: PLATELET COUNT (AUTO) 578 K/uL (150-450); RED BLOOD CELL COUNT(AUTO) 3.48 MIL/uL (4.0-5.2); RED CELL DISTRIBUTION WIDTH 17.1 % (11.5-15.0); WHITE BLOOD COUNT (AUTO) 6.9 K/uL (4.3-11.0)
[2025-06-28 07:15] LABS: CALCIUM, SERUM 9.6 mg/dL (8.5-10.1); CREATININE 5.1 mg/dL (0.6-1.3); PHOSPHORUS 4.6 mg/dL (2.5-4.9); SODIUM SERUM 143.0 mmol/L (136-145); UREA NITROGEN, BLOOD 14.0 mg/dL (7-18)
[2025-06-28 07:30] VITALS: BP 121/67; TEMP 99.5; O2SAT 93
[2025-06-28 08:00] VITALS: BP 121/67; TEMP 99.5; O2SAT 95
[2025-06-28] MEDS: NEPRO VAN 237 ML CAN PO SCH (12:15)
[2025-06-28 16:00] VITALS: BP 95/72; TEMP 97.7; O2SAT 93
[2025-06-28 20:00] VITALS: BP 102/73; TEMP 97.5; O2SAT 96
[2025-06-29 06:04] LABS: PLATELET COUNT (AUTO) 560 K/uL (150-450); RED BLOOD CELL COUNT(AUTO) 3.57 MIL/uL (4.0-5.2); RED CELL DISTRIBUTION WIDTH 17.4 % (11.5-15.0); WHITE BLOOD COUNT (AUTO) 9.4 K/uL (4.3-11.0)
[2025-06-29 06:12] LABS: ASPARTATE AMINOTRANSFERASE 11.0 U/L (15-37); CREATININE 7.2 mg/dL (0.6-1.3); PHOSPHORUS 5.4 mg/dL (2.5-4.9); SODIUM SERUM 142.0 mmol/L (136-145); TOTAL PROTEIN, SERUM 8.2 g/dL (6.4-8.2); UREA NITROGEN, BLOOD 27.0 mg/dL (7-18)
[2025-06-29 06:30] LABS: CALCIUM, SERUM 9.3 mg/dL (8.5-10.1)
[2025-06-29 08:00] VITALS: BP 111/70; TEMP 98.1; TEMP 98.2; O2SAT 100; O2SAT 96
[2025-06-29 16:00] VITALS: BP 119/79; TEMP 98.2; O2SAT 100
[2025-06-29 20:00] VITALS: BP 118/50; TEMP 98.2; O2SAT 93
[2025-06-30 06:46] LABS: PLATELET COUNT (AUTO) 555 K/uL (150-450); RED BLOOD CELL COUNT(AUTO) 3.62 MIL/uL (4.0-5.2); RED CELL DISTRIBUTION WIDTH 16.6 % (11.5-15.0); WHITE BLOOD COUNT (AUTO) 8.7 K/uL (4.3-11.0)
[2025-06-30 07:15] LABS: ASPARTATE AMINOTRANSFERASE 14.0 U/L (15-37); CALCIUM, SERUM 9.6 mg/dL (8.5-10.1); PHOSPHORUS 6.6 mg/dL (2.5-4.9); SODIUM SERUM 140.0 mmol/L (136-145); TOTAL PROTEIN, SERUM 8.2 g/dL (6.4-8.2); UREA NITROGEN, BLOOD 31.0 mg/dL (7-18)
[2025-06-30 07:52] LABS: CREATININE 8.1 mg/dL (0.6-1.3)
[2025-06-30 08:00] VITALS: BP 117/80; TEMP 98.1; TEMP 98.2; O2SAT 99
[2025-06-30 16:00] VITALS: BP 105/73; TEMP 98.1; O2SAT 98
[2025-06-30 20:00] VITALS: BP 119/93; TEMP 97.5; O2SAT 97
[2025-06-30 20:10] VITALS: BP 119/93; TEMP 97.5; O2SAT 97
[2025-07-01 07:00] VITALS: BP 126/89; TEMP 97.4; O2SAT 94
[2025-07-01 08:00] VITALS: BP 126/89; TEMP 98.2; O2SAT 97
[2025-07-01 16:00] VITALS: BP 105/79; TEMP 97.8; O2SAT 98
[2025-07-01 20:00] VITALS: BP 11/83; TEMP 97.5; O2SAT 95
[2025-07-01 20:05] VITALS: BP 111/83; TEMP 97.5; O2SAT 95
[2025-07-02 06:39] LABS: PLATELET COUNT (AUTO) 499 K/uL (150-450); RED BLOOD CELL COUNT(AUTO) 3.39 MIL/uL (4.0-5.2); RED CELL DISTRIBUTION WIDTH 16.5 % (11.5-15.0); WHITE BLOOD COUNT (AUTO) 7.3 K/uL (4.3-11.0)
[2025-07-02 06:51] LABS: CALCIUM, SERUM 9.0 mg/dL (8.5-10.1); SODIUM SERUM 141.0 mmol/L (136-145); UREA NITROGEN, BLOOD 39.0 mg/dL (7-18)
[2025-07-02 06:58] LABS: CREATININE 10.4 mg/dL (0.6-1.3); PHOSPHORUS 8.0 mg/dL (2.5-4.9)
[2025-07-02 07:30] VITALS: BP 131/86; TEMP 97.8; O2SAT 94
[2025-07-02 08:00] VITALS: BP 131/86; TEMP 97.8; O2SAT 95
[2025-07-02 16:00] VITALS: BP 167/101; TEMP 98.4; O2SAT 97
[2025-07-02 20:00] VITALS: BP 151/86; TEMP 98.2; O2SAT 95
[2025-07-03] VITALS (7 sets, daily range): BP systolic 120–173; BP diastolic 78–96; TEMP 97.6–98.2; O2SAT 94–100
[2025-07-03] MEDS: OLANZAPINE ZYDIS 5 MG TAB.RAPDIS PO SCH (13:00)
[2025-07-04 06:55] LABS: PLATELET COUNT (AUTO) 478 K/uL (150-450); RED BLOOD CELL COUNT(AUTO) 3.83 MIL/uL (4.0-5.2); RED CELL DISTRIBUTION WIDTH 16.2 % (11.5-15.0); WHITE BLOOD COUNT (AUTO) 7.5 K/uL (4.3-11.0)
[2025-07-04 07:46] LABS: CALCIUM, SERUM 9.4 mg/dL (8.5-10.1); CREATININE 6.6 mg/dL (0.6-1.3); PHOSPHORUS 4.9 mg/dL (2.5-4.9); SODIUM SERUM 138.0 mmol/L (136-145); UREA NITROGEN, BLOOD 20.0 mg/dL (7-18)
[2025-07-04 08:00] VITALS: BP 80/45; TEMP 97.5; O2SAT 95
[2025-07-04 09:16] VITALS: BP 65/47; TEMP 97.5; O2SAT 95
[2025-07-04] MEDS: MIDODRINE HCL (5MG) 5 MG TABLET PO PRN (12:40)
[2025-07-04] MEDS: MIDODRINE HCL (5MG) 5 MG TABLET PO ONE (14:02)
[2025-07-04] MEDS: MIDODRINE HCL (5MG) 5 MG TABLET PO SCH (17:16)
[2025-07-04 17:38] VITALS: BP 102/81; TEMP 98; O2SAT 96
[2025-07-04 20:00] VITALS: BP 117/74; TEMP 97.5; TEMP 98.6; O2SAT 95
[2025-07-05 06:42] LABS: PLATELET COUNT (AUTO) 458 K/uL (150-450); RED BLOOD CELL COUNT(AUTO) 3.86 MIL/uL (4.0-5.2); RED CELL DISTRIBUTION WIDTH 15.9 % (11.5-15.0); WHITE BLOOD COUNT (AUTO) 8.1 K/uL (4.3-11.0)
[2025-07-05 06:57] LABS: ASPARTATE AMINOTRANSFERASE 16 U/L (15-37); CALCIUM, SERUM 9.5 mg/dL (8.5-10.1); PHOSPHORUS 6.0 mg/dL (2.5-4.9); SODIUM SERUM 136 mmol/L (136-145); TOTAL PROTEIN, SERUM 8.0 g/dL (6.4-8.2); UREA NITROGEN, BLOOD 26 mg/dL (7-18)
[2025-07-05 07:47] LABS: CREATININE 8.5 mg/dL (0.6-1.3)
[2025-07-05 08:00] VITALS: BP 101/60; TEMP 97.8; O2SAT 96
[2025-07-05 16:00] VITALS: BP 119/76; TEMP 97.6; O2SAT 96
[2025-07-05 20:00] VITALS: BP 118/82; TEMP 97.7; O2SAT 99
[2025-07-06 07:03] LABS: CALCIUM, SERUM 9.2 mg/dL (8.5-10.1); PHOSPHORUS 6.1 mg/dL (2.5-4.9); SODIUM SERUM 137.0 mmol/L (136-145)
[2025-07-06 07:20] LABS: PLATELET COUNT (AUTO) 375 K/uL (150-450); RED BLOOD CELL COUNT(AUTO) 3.53 MIL/uL (4.0-5.2); RED CELL DISTRIBUTION WIDTH 16.2 % (11.5-15.0); WHITE BLOOD COUNT (AUTO) 7.0 K/uL (4.3-11.0)
[2025-07-06 07:22] LABS: UREA NITROGEN, BLOOD 26.0 mg/dL (7-18)
[2025-07-06 08:00] VITALS: BP 158/91; TEMP 97.7; O2SAT 96
[2025-07-06 08:24] LABS: CREATININE 8.2 mg/dL (0.6-1.3)
[2025-07-06] MEDS: HEPARIN-LOCK FLUSH PORCINE PF 100 UNITS/1 ML (10 ML)DISP.SYRIN IV PRN (15:31)
[2025-07-06 16:00] VITALS: BP 147/90; TEMP 98.5; O2SAT 95
[2025-07-06 20:00] VITALS: BP 151/85; TEMP 98.1; O2SAT 98
[2025-07-06 20:16] VITALS: BP 151/85; TEMP 98.1; O2SAT 99
[2025-07-07 08:00] VITALS: BP 93/57; TEMP 98.1; O2SAT 95
[2025-07-07 16:00] VITALS: BP 118/78; TEMP 98.6; O2SAT 96
[2025-07-07 16:47] LABS: PLATELET COUNT (AUTO) 347 K/uL (150-450); RED BLOOD CELL COUNT(AUTO) 3.98 MIL/uL (4.0-5.2); RED CELL DISTRIBUTION WIDTH 15.7 % (11.5-15.0); WHITE BLOOD COUNT (AUTO) 8.0 K/uL (4.3-11.0)
[2025-07-07 17:06] LABS: ASPARTATE AMINOTRANSFERASE 13.0 U/L (15-37); CALCIUM, SERUM 9.5 mg/dL (8.5-10.1); CREATININE 6.3 mg/dL (0.6-1.3); PHOSPHORUS 4.1 mg/dL (2.5-4.9); SODIUM SERUM 138.0 mmol/L (136-145); TOTAL PROTEIN, SERUM 8.3 g/dL (6.4-8.2); UREA NITROGEN, BLOOD 17.0 mg/dL (7-18)
[2025-07-07 20:00] VITALS: BP 147/77; TEMP 97.7; O2SAT 96
[2025-07-08] VITALS (7 sets, daily range): BP systolic 130–175; BP diastolic 79–90; TEMP 97.7–98.1; O2SAT 98
[2025-07-09 07:00] VITALS: BP 115/89; TEMP 97.5; O2SAT 96
[2025-07-09 12:00] VITALS: BP 115/89; TEMP 97.5; O2SAT 96
[2025-07-09 16:00] VITALS: BP 117/83; TEMP 97.3; O2SAT 98
[2025-07-09 20:00] VITALS: BP_SYST 148; BP_SYST 160; BP_DIAS 82; BP_DIAS 90; TEMP 98.8; O2SAT 98
[2025-07-09 23:07] LABS: HEPATITIS B CORE AB, IgM Negative (Negative); HEPATITIS B CORE AB, TOTAL Negative (Negative)
[2025-07-10 06:59] LABS: PLATELET COUNT (AUTO) 292 K/uL (150-450); RED BLOOD CELL COUNT(AUTO) 3.82 MIL/uL (4.0-5.2); RED CELL DISTRIBUTION WIDTH 16.3 % (11.5-15.0); WHITE BLOOD COUNT (AUTO) 6.7 K/uL (4.3-11.0)
[2025-07-10 07:00] LABS: CALCIUM, SERUM 9.5 mg/dL (8.5-10.1); PHOSPHORUS 5.1 mg/dL (2.5-4.9); SODIUM SERUM 140.0 mmol/L (136-145)
[2025-07-10 07:07] LABS: UREA NITROGEN, BLOOD 24.0 mg/dL (7-18)
[2025-07-10 07:30] LABS: CREATININE 7.8 mg/dL (0.6-1.3)
[2025-07-10 08:00] VITALS: BP 117/60; TEMP 98; O2SAT 98
[2025-07-10 16:00] VITALS: BP 106/77; TEMP 97.6; O2SAT 98
[2025-07-10 17:48] LABS: INR 1.02 (0.91-1.10)
[2025-07-10 20:00] VITALS: BP 124/93; TEMP 98.1; O2SAT 98
[2025-07-11] MEDS ORDERED: IOHEXOL 50 ML IV ONE (07:07)
[2025-07-11] MEDS ORDERED: ANESTHESIA TRAY IN PYXIS 1 EA TRAY MC ONE (07:07)
[2025-07-11] MEDS ORDERED: HEPARIN SODIUM, PORCINE 1,000 UNIT/ML VIAL ONE (07:08)
[2025-07-11] MEDS ORDERED: LIDOCAINE 1% INJ 50 ML MDV IJ ONE (07:08)
[2025-07-11 07:50] LABS: PLATELET COUNT (AUTO) 255 K/uL (150-450); RED BLOOD CELL COUNT(AUTO) 4.26 MIL/uL (4.0-5.2); RED CELL DISTRIBUTION WIDTH 16.7 % (11.5-15.0); WHITE BLOOD COUNT (AUTO) 7.3 K/uL (4.3-11.0)
[2025-07-11] MEDS ORDERED: MIDAZOLAM HCL 2 MG/2ML VIAL ONE (07:56)
[2025-07-11] MEDS ORDERED: FENTANYL PF 100MCG/2ML AMPUL ONE (07:56)
[2025-07-11 08:00] VITALS: BP 132/87; TEMP 98.1; O2SAT 97
[2025-07-11 08:03] LABS: CALCIUM, SERUM 9.8 mg/dL (8.5-10.1); CREATININE 5.9 mg/dL (0.6-1.3); PHOSPHORUS 3.7 mg/dL (2.5-4.9); SODIUM SERUM 141.0 mmol/L (136-145); UREA NITROGEN, BLOOD 15.0 mg/dL (7-18)
[2025-07-11] MEDS ORDERED: ROPIVACAINE HCL 0.5% 5 MG/ML 30ML VIAL ONE (14:25)
[2025-07-11] MEDS ORDERED: LIDOCAINE 2% 50 ML MDV IJ ONE (14:26)
[2025-07-11 14:34] VITALS: BP 90/73
[2025-07-11 16:00] VITALS: BP 111/75; TEMP 97.9; O2SAT 96
[2025-07-11 23:19] VITALS: BP 139/114; TEMP 98.1; O2SAT 96
[2025-07-12 07:14] LABS: PLATELET COUNT (AUTO) 243 K/uL (150-450); RED BLOOD CELL COUNT(AUTO) 4.40 MIL/uL (4.0-5.2); RED CELL DISTRIBUTION WIDTH 15.9 % (11.5-15.0); WHITE BLOOD COUNT (AUTO) 7.3 K/uL (4.3-11.0)
[2025-07-12 07:27] LABS: INR 1.01 (0.91-1.10)
[2025-07-12 07:37] LABS: CALCIUM, SERUM 10.0 mg/dL (8.5-10.1); CREATININE 7.1 mg/dL (0.6-1.3); PHOSPHORUS 4.9 mg/dL (2.5-4.9); SODIUM SERUM 137.0 mmol/L (136-145); UREA NITROGEN, BLOOD 23.0 mg/dL (7-18)
[2025-07-12 20:00] VITALS: BP 122/59; TEMP 97.7; O2SAT 96
[2025-07-13 08:35] VITALS: BP 108/75; TEMP 97.5
[2025-07-13 10:08] LABS: PLATELET COUNT (AUTO) 229 K/uL (150-450); RED BLOOD CELL COUNT(AUTO) 3.91 MIL/uL (4.0-5.2); RED CELL DISTRIBUTION WIDTH 16.3 % (11.5-15.0); WHITE BLOOD COUNT (AUTO) 6.0 K/uL (4.3-11.0)
[2025-07-13 10:29] LABS: CALCIUM, SERUM 9.8 mg/dL (8.5-10.1); CREATININE 6.5 mg/dL (0.6-1.3); PHOSPHORUS 4.7 mg/dL (2.5-4.9); SODIUM SERUM 138.0 mmol/L (136-145); UREA NITROGEN, BLOOD 19.0 mg/dL (7-18)
[2025-07-13 16:14] VITALS: BP 124/80; TEMP 97.5; O2SAT 96
[2025-07-13 20:00] VITALS: BP 103/68; TEMP 97.9; O2SAT 96
[2025-07-14 08:00] VITALS: BP 102/60; TEMP 97.9; O2SAT 98
[2025-07-14 16:00] VITALS: BP 120/91; TEMP 97.9; O2SAT 95
[2025-07-14] MEDS: ANCEF 1 GM/50 ML D5W IV SCH (19:44)
[2025-07-14 20:00] VITALS: BP 105/72; TEMP 98.2; O2SAT 99
[2025-07-15 08:00] VITALS: BP 107/76; TEMP 98.1; O2SAT 99
[2025-07-15 12:33] LABS: CALCIUM, SERUM 9.7 mg/dL (8.5-10.1); CREATININE 5.9 mg/dL (0.6-1.3); SODIUM SERUM 132.0 mmol/L (136-145); UREA NITROGEN, BLOOD 17.0 mg/dL (7-18)
[2025-07-15 12:39] LABS: PLATELET COUNT (AUTO) 243 K/uL (150-450); RED BLOOD CELL COUNT(AUTO) 3.98 MIL/uL (4.0-5.2); RED CELL DISTRIBUTION WIDTH 15.4 % (11.5-15.0); WHITE BLOOD COUNT (AUTO) 7.3 K/uL (4.3-11.0)
[2025-07-15 16:00] VITALS: BP 102/73; TEMP 97.9; O2SAT 96
[2025-07-15 20:00] VITALS: BP 124/89; TEMP 98.6; O2SAT 96
[2025-07-16 07:00] VITALS: BP 118/83; TEMP 97.5; O2SAT 96
[2025-07-16 16:00] VITALS: BP 109/79; TEMP 97.5; O2SAT 97
[2025-07-17 08:00] VITALS: BP 111/46; TEMP 97.5; O2SAT 97
[2025-07-17 12:00] VITALS: BP 76/56; TEMP 97.5; O2SAT 97
[2025-07-17 13:09] VITALS: BP 63/41; TEMP 97.6; O2SAT 97
[2025-07-17 16:00] VITALS: BP 109/76; TEMP 97.9; O2SAT 98
[2025-07-17 17:03] VITALS: BP 109/76; TEMP 97.9; O2SAT 98
[2025-07-17 20:00] VITALS: BP 98/60; TEMP 98.6; O2SAT 99
[2025-07-18 07:04] LABS: PLATELET COUNT (AUTO) 244 K/uL (150-450); RED BLOOD CELL COUNT(AUTO) 3.99 MIL/uL (4.0-5.2); RED CELL DISTRIBUTION WIDTH 16.1 % (11.5-15.0); WHITE BLOOD COUNT (AUTO) 8.8 K/uL (4.3-11.0)
[2025-07-18 07:31] LABS: ASPARTATE AMINOTRANSFERASE 12 U/L (15-37); CALCIUM, SERUM 10.2 mg/dL (8.5-10.1); PHOSPHORUS 5.3 mg/dL (2.5-4.9); SODIUM SERUM 136 mmol/L (136-145); TOTAL PROTEIN, SERUM 8.4 g/dL (6.4-8.2); UREA NITROGEN, BLOOD 38 mg/dL (7-18)
[2025-07-18 08:00] VITALS: BP 102/69; TEMP 97.5; O2SAT 98
[2025-07-18 08:12] LABS: CREATININE 7.5 mg/dL (0.6-1.3)
[2025-07-18] MEDS ORDERED: HYDROCODONE/APAP 5/325MG TABLET PO PRN (10:00)
[2025-07-18] MEDS ORDERED: LORAZEPAM 1 MG TABLET PO PRN (10:01)
[2025-07-18] MEDS: SEVELAMER CARBONATE 800 MG POWD.PACK PO SCH (12:55)
[2025-07-18 16:00] VITALS: BP 90/64; TEMP 97.5; O2SAT 95
[2025-07-18 20:00] VITALS: BP 92/70; TEMP 98.2; O2SAT 95
[2025-07-19 08:00] VITALS: BP 101/55; TEMP 97.9; O2SAT 98
[2025-07-19] MEDS: ASPIRIN 81 MG TAB.CHEW PO SCH (09:11)
[2025-07-19 09:30] VITALS: BP 99/71
[2025-07-19 12:00] VITALS: BP 92/63
[2025-07-19] MEDS: MIDODRINE HCL (5MG) 5 MG TABLET PO SCH (12:08)
[2025-07-19 12:38] LABS: PLATELET COUNT (AUTO) 247 K/uL (150-450); RED BLOOD CELL COUNT(AUTO) 3.99 MIL/uL (4.0-5.2); RED CELL DISTRIBUTION WIDTH 15.7 % (11.5-15.0); WHITE BLOOD COUNT (AUTO) 6.8 K/uL (4.3-11.0)
[2025-07-19 13:11] LABS: ASPARTATE AMINOTRANSFERASE 12 U/L (15-37); CALCIUM, SERUM 9.8 mg/dL (8.5-10.1); CREATININE 6.7 mg/dL (0.6-1.3); PHOSPHORUS 4.3 mg/dL (2.5-4.9); SODIUM SERUM 135 mmol/L (136-145); TOTAL PROTEIN, SERUM 8.2 g/dL (6.4-8.2); UREA NITROGEN, BLOOD 31 mg/dL (7-18)
[2025-07-19 15:21] VITALS: BP_SYST 91; BP_SYST 99; BP_DIAS 49; BP_DIAS 71; O2SAT 98
[2025-07-19 16:00] VITALS: BP 130/78; TEMP 98.1; O2SAT 100
[2025-07-19 20:00] VITALS: BP 119/92; TEMP 97.7; O2SAT 95
[2025-07-20 07:33] LABS: PLATELET COUNT (AUTO) 265 K/uL (150-450); RED BLOOD CELL COUNT(AUTO) 3.98 MIL/uL (4.0-5.2); RED CELL DISTRIBUTION WIDTH 15.4 % (11.5-15.0); WHITE BLOOD COUNT (AUTO) 8.2 K/uL (4.3-11.0)
[2025-07-20 08:04] LABS: ASPARTATE AMINOTRANSFERASE 14 U/L (15-37); CALCIUM, SERUM 10.1 mg/dL (8.5-10.1); PHOSPHORUS 4.6 mg/dL (2.5-4.9); SODIUM SERUM 134 mmol/L (136-145); TOTAL PROTEIN, SERUM 8.6 g/dL (6.4-8.2); UREA NITROGEN, BLOOD 43 mg/dL (7-18)
[2025-07-20 08:15] LABS: CREATININE 7.6 mg/dL (0.6-1.3)
[2025-07-20 08:30] VITALS: BP 110/76; TEMP 97.5; O2SAT 99
[2025-07-20 15:00] VITALS: BP 135/82; TEMP 98.1; O2SAT 95
[2025-07-20 20:00] VITALS: BP 115/95; TEMP 97.7; O2SAT 100
[2025-07-21 07:58] LABS: PLATELET COUNT (AUTO) 223 K/uL (150-450); RED BLOOD CELL COUNT(AUTO) 4.06 MIL/uL (4.0-5.2); RED CELL DISTRIBUTION WIDTH 15.5 % (11.5-15.0); WHITE BLOOD COUNT (AUTO) 11.3 K/uL (4.3-11.0)
[2025-07-21 08:00] VITALS: BP 111/80; TEMP 98.1; O2SAT 99
[2025-07-21 08:13] LABS: CALCIUM, SERUM 10.1 mg/dL (8.5-10.1); CREATININE 5.9 mg/dL (0.6-1.3); PHOSPHORUS 3.4 mg/dL (2.5-4.9); SODIUM SERUM 133.0 mmol/L (136-145); UREA NITROGEN, BLOOD 31.0 mg/dL (7-18)
[2025-07-21 08:21] VITALS: BP 111/80
== END 2025-07-21 11:35 | DRG 469 ==
LOC: TELE1 15:21 → MEDSG1 15:42 → MED 06-06 23:57 → ICU 06-12 16:38 → TELE1 06-21 16:21 → TELE-TD 06-21 19:01 → MEDSG1 06-23 09:58 → MED 06-26 18:55
PROVIDERS: ADMIT Nurse Practitioner Acute Care
PROC: 06HY33Z Insertion of Infusion Device into Lower Vein, Percutaneous Approach (ICD-10-PCS; principal; 2025-05-28)
PROC: 5A1D70Z Performance of Urinary Filtration, Intermittent, Less than 6 Hours Per Day (ICD-10-PCS; 2025-05-28)
PROC: 05HD33Z Insertion of Infusion Device into Right Cephalic Vein, Percutaneous Approach (ICD-10-PCS; 2025-06-10)
PROC: 5A1955Z Respiratory Ventilation, Greater than 96 Consecutive Hours (ICD-10-PCS; 2025-06-12)
PROC: 0BH17EZ Insertion of Endotracheal Airway into Trachea, Via Natural or Artificial Opening (ICD-10-PCS; 2025-06-12)
PROC: 5A12012 Performance of Cardiac Output, Single, Manual (ICD-10-PCS; 2025-06-12)
PROC: 30233N1 Transfusion of Nonautologous Red Blood Cells into Peripheral Vein, Percutaneous Approach (ICD-10-PCS; 2025-06-13)
PROC: 05H933Z Insertion of Infusion Device into Right Brachial Vein, Percutaneous Approach (ICD-10-PCS; 2025-06-23)
PROC: 06HY33Z Insertion of Infusion Device into Lower Vein, Percutaneous Approach (ICD-10-PCS; 2025-06-24)
PROC: 06HY33Z Insertion of Infusion Device into Lower Vein, Percutaneous Approach (ICD-10-PCS; 2025-07-03)
PROC: 0JH63XZ Insertion of Tunneled Vascular Access Device into Chest Subcutaneous Tissue and Fascia, Percutaneous Approach (ICD-10-PCS; 2025-07-14)
PROC: 02H633Z Insertion of Infusion Device into Right Atrium, Percutaneous Approach (ICD-10-PCS; 2025-07-14)
PROC: B518YZA Fluoroscopy of Superior Vena Cava using Other Contrast, Guidance (ICD-10-PCS; 2025-07-14)
DX: N17.0 Acute kidney failure with tubular necrosis (principal); J96.01 Acute respiratory failure with hypoxia; J81.0 Acute pulmonary edema; G92.8 Other toxic encephalopathy; F31.5 Bipolar disorder, current episode depressed, severe, with psychotic features; E43 Unspecified severe protein-calorie malnutrition; R57.9 Shock, unspecified; D63.1 Anemia in chronic kidney disease; E87.20 Acidosis, unspecified; D68.59 Other primary thrombophilia; E88.09 Other disorders of plasma-protein metabolism, not elsewhere classified; B35.1 Tinea unguium; E78.5 Hyperlipidemia, unspecified; Z73.6 Limitation of activities due to disability; I12.9 Hypertensive chronic kidney disease with stage 1 through stage 4 chronic kidney disease, or unspecified chronic kidney disease; N18.9 Chronic kidney disease, unspecified; R73.03 Prediabetes; I46.9 Cardiac arrest, cause unspecified; E66.01 Morbid (severe) obesity due to excess calories; E87.6 Hypokalemia; E83.89 Other disorders of mineral metabolism; F39 Unspecified mood [affective] disorder; Z91.199 Patient's noncompliance with other medical treatment and regimen due to unspecified reason; E66.9 Obesity, unspecified; Z68.32 Body mass index [BMI] 32.0-32.9, adult; F29 Unspecified psychosis not due to a substance or known physiological condition; Z91.158 Patient's noncompliance with renal dialysis for other reason; S90.414A Abrasion, right lesser toe(s), initial encounter; X58.XXXA Exposure to other specified factors, initial encounter; Y93.9 Activity, unspecified; Y92.009 Unspecified place in unspecified non-institutional (private) residence as the place of occurrence of the external cause; R78.81 Bacteremia; E87.0 Hyperosmolality and hypernatremia; N18.6 End stage renal disease; R13.10 Dysphagia, unspecified
CPT/HCPCS: 31720; 36410; 36415; 36600; 70450-TC; 71045-TC; 74230-TC; 76770-TC; 80048-TC; 80053-TC; 80076-TC; 80178-TC; 82550-TC; 82607-TC; 82803-TC; 82962-TC; 83520; 83735-TC; 83970; 84100-TC; 84155; 84165; 84439-TC; 84443-TC; 84478-TC; 84481; 84484-TC; 85025-TC; 85027-TC; 85610-TC; 85652-TC; 85730-TC; 86225; 86235; 86256; 86704; 86705; 86706; 86803; 86850-TC; 87040-TC; 87186-TC; 87340; 90935-TC; 92526; 92611; 93307-TC; 94003-TC; 94799-TC; 97112-TC; 97530-TC; A4216; A4223; A4624; A6253; A6254; A6403; C1750; G0378; J0169; J0690; J0696; J0885; J1642; J1644; J2060; J2250; J2405; J2543; J2704; J2795; J2997; J3010; J3480; J3490; J7030; J7040; J7050; J7060; P9016; P9047; Q9967

== ENCOUNTER 2025-08-09 19:05 | Inpatient (IN) | payer MEDICAID ==
[~2025-08-09] VITALS: Ht 154.9 cm; Wt 61.7 kg
[~2025-08-09 19:05] MED LIST changes: -ASPI-1169 PO; -ATOR40TA PO; -ESCI5TAB PO; -FURO40TA5 PO; -GABA300C PO; -HYDR-4076 PO; +LORA-259 PO; -METO25TA6 PO; -PYRI50TA15 PO
[2025-08-09] MEDS: IV NS 0.9% 500 ML BAG IV ONE ×2 (19:30→20:45)
[2025-08-09 19:48] LABS: PLATELET COUNT (AUTO) 268 K/uL (150-450); RED BLOOD CELL COUNT(AUTO) 4.02 MIL/uL (4.0-5.2); RED CELL DISTRIBUTION WIDTH 16.4 % (11.5-15.0); WHITE BLOOD COUNT (AUTO) 11.9 K/uL (4.3-11.0)
[2025-08-09 19:55] LABS: CALCIUM, SERUM 9.0 mg/dL (8.5-10.1); CREATININE 2.8 mg/dL (0.6-1.3); SODIUM SERUM 128 mmol/L (136-145); UREA NITROGEN, BLOOD 15 mg/dL (7-18)
[2025-08-09 20:01] LABS: ASPARTATE AMINOTRANSFERASE 36 U/L (15-37); TOTAL PROTEIN, SERUM 8.8 g/dL (6.4-8.2)
[2025-08-09 20:05] LABS: LACTIC ACID 2.1 mmol/L (0.4-2.0)
[2025-08-09] MEDS: CEFEPIME 1 GM in IV D5W 50 ML IV ONE (20:15)
[2025-08-09 20:16] LABS: INR 0.98 (0.91-1.10)
[2025-08-09] MEDS: VANCOMYCIN 1 GM in IV D5W 250 ML IV ONE (20:50)
[2025-08-09] MEDS ORDERED: ZOLPIDEM TARTRATE 5 MG TABLET PO PRN (21:00)
[2025-08-09] MEDS ORDERED: MAGNESIUM HYDROXIDE 30 ML UDC PO PRN (21:00)
[2025-08-09] MEDS ORDERED: MAG HYDROX/AL HYDROX/SIMETH 30 ML UDC PO PRN (21:00)
[2025-08-09] MEDS: MIDODRINE HCL (5MG) 5 MG TABLET PO SCH (22:50)
[2025-08-10] VITALS (8 sets, daily range): BP systolic 87–132; BP diastolic 50–68; TEMP 97.3–98.6; O2SAT 95–100
[2025-08-10] MEDS ORDERED: DOSING PER PHARMACY-VANCOMYCIN IV XX PRN (01:00)
[2025-08-10] MEDS ORDERED: DEXTROSE 50%-WATER 50 ML DISP.SYRIN IV PRN (01:00)
[2025-08-10 06:16] LABS: PLATELET COUNT (AUTO) 221 K/uL (150-450); RED BLOOD CELL COUNT(AUTO) 3.74 MIL/uL (4.0-5.2); RED CELL DISTRIBUTION WIDTH 16.5 % (11.5-15.0); WHITE BLOOD COUNT (AUTO) 6.6 K/uL (4.3-11.0)
[2025-08-10 06:24] LABS: CALCIUM, SERUM 9.2 mg/dL (8.5-10.1); CREATININE 3.8 mg/dL (0.6-1.3); PHOSPHORUS 2.5 mg/dL (2.5-4.9); SODIUM SERUM 131.0 mmol/L (136-145); UREA NITROGEN, BLOOD 23.0 mg/dL (7-18)
[2025-08-10] MEDS: BLOOD SUGAR DIAGNOSTIC 1 EACH STRIP IN SCH (06:46)
[2025-08-10] MEDS: INSULIN REGULAR, HUMAN 100 UNIT/ML 3 ML VIAL SQ PRN (06:47)
[2025-08-10] MEDS: ONDANSETRON HCL/PF 4 MG/2 ML VIAL IVP PRN (07:58)
[2025-08-10] MEDS ORDERED: MIDO10TA PO (08:23)
[2025-08-10] MEDS ORDERED: NA P133E RC (08:23)
[2025-08-10] MEDS ORDERED: ACET325T53 PO (08:23)
[2025-08-10] MEDS ORDERED: DOCU100C36 PO (08:23)
[2025-08-10] MEDS ORDERED: MAGN400O6 PO (08:23)
[2025-08-10] MEDS ORDERED: HYDR-3972 PO (08:23)
[2025-08-10] MEDS ORDERED: OLAN7.5T3 PO (08:23)
[2025-08-10] MEDS ORDERED: FOLI0.8T23 PO (08:23)
[2025-08-10] MEDS ORDERED: ASPI-1169 PO (08:23)
[2025-08-10] MEDS ORDERED: SEVE800T8 PO (08:23)
[2025-08-10] MEDS ORDERED: BISA10SU11 RC (08:23)
[2025-08-10] MEDS ORDERED: NUT.237L85 PO (08:23)
[2025-08-10] MEDS: POTASSIUM CHLORIDE 20 MEQ TAB.PRT.SR PO ONE (10:11)
[2025-08-10] MEDS ORDERED: NITROGLYCERIN 0.4 MG/TAB BOTTLE SL PRN (11:00)
[2025-08-10] MEDS ORDERED: HYDROCODONE/APAP 5/325MG TABLET PO PRN (12:30)
[2025-08-10] MEDS: VIT B CMPLX 3/FA/VIT C/BIOTIN 1 TAB TABLET PO SCH (12:30)
[2025-08-10] MEDS ORDERED: ACETAMINOPHEN 325 MG TABLET PO PRN (12:30)
[2025-08-10] MEDS ORDERED: NA PHOS,M-B/NA PHOS,DI-BA 1 EA ENEMA RC PRN (12:30)
[2025-08-10] MEDS ORDERED: MAGNESIUM HYDROXIDE 30 ML UDC PO PRN (12:30)
[2025-08-10] MEDS: SEVELAMER CARBONATE 800 MG TABLET PO SCH ×2 (13:00→17:49)
[2025-08-10] MEDS: MIDODRINE HCL (5MG) 5 MG TABLET PO SCH (13:00)
[2025-08-10] MEDS: OLANZAPINE 5 MG TABLET PO SCH ×2 (13:00→16:46)
[2025-08-10] MEDS ORDERED: SENNOSIDES/DOCUSATE SODIUM 1 TAB TABLET PO PRN (13:30)
[2025-08-10] MEDS: CEFEPIME 1 GM in IV D5W 50 ML IV SCH (20:25)
[2025-08-10] MEDS ORDERED: MIDODRINE HCL (5MG) 5 MG TABLET PO SCH (21:00)
[2025-08-11] VITALS (38 sets, daily range): BP systolic 77–140; BP diastolic 40–110; TEMP 97–99.2; O2SAT 89–100
[2025-08-11 07:57] LABS: CALCIUM, SERUM 9.6 mg/dL (8.5-10.1); CREATININE 5.6 mg/dL (0.6-1.3); SODIUM SERUM 133.0 mmol/L (136-145); UREA NITROGEN, BLOOD 34.0 mg/dL (7-18)
[2025-08-11] MEDS: DOCUSATE SODIUM 100 MG CAPSULE PO SCH (08:53)
[2025-08-11] MEDS: ASPIRIN 81 MG TAB.CHEW PO SCH (08:53)
[2025-08-11] MEDS: BISACODYL SUPP (10 MG) 10 MG/SUPP.RECT SUPP.RECT RC SCH (09:00)
[2025-08-11] MEDS ORDERED: NOREPINEPHRINE 8 MG in IV NS 0.9% 242 ML IV PRN ×2 (10:00→11:30)
[2025-08-11] MEDS ORDERED: NEPRO VAN 237 ML CAN PO PRN (14:00)
[2025-08-11] MEDS: ALBUMIN 25% 25 GM in PREMIX 1 EA IV PRN (14:26)
[2025-08-11] MEDS: VANCOMYCIN POST DIALYSIS 500MG IV PRN (19:29)
[2025-08-12] VITALS (20 sets, daily range): BP systolic 98–154; BP diastolic 52–97; TEMP 98.2–98.9; O2SAT 96–100
[2025-08-12 04:58] LABS: CALCIUM, SERUM 9.6 mg/dL (8.5-10.1); CREATININE 4.0 mg/dL (0.6-1.3); SODIUM SERUM 138.0 mmol/L (136-145); UREA NITROGEN, BLOOD 17.0 mg/dL (7-18)
[2025-08-12] MEDS: ACETAMINOPHEN 325 MG TABLET PO PRN (10:31)
[2025-08-12 11:41] LABS: ABG BASE EXCESS 4.4 mmol/L (-2.0-3.0); ABG OXYGEN SATURATION 98.4 % (94.0-98.0); ABG PCO2 43.5 mmHg (32.0-45.0); ABG PH 7.442 (7.350-7.450); ABG PO2 129.4 mmHg (83.0-108.0); ABG TOTAL HEMOGLOBIN 11.6 G/dL (12.0-16.0); FLOW, BLOOD GAS 2.00 L/min (0.00-30.00); FRACTIONATED INSPIRED OXYGEN 28.0 %; SITE, ABG RIGHT RADIAL
[2025-08-13] VITALS (33 sets, daily range): BP systolic 87–151; BP diastolic 49–97; TEMP 97.7–99; O2SAT 95–99
[2025-08-13 07:10] LABS: CALCIUM, SERUM 10.6 mg/dL (8.5-10.1); CREATININE 6.4 mg/dL (0.6-1.3); SODIUM SERUM 140.0 mmol/L (136-145); UREA NITROGEN, BLOOD 31.0 mg/dL (7-18)
[2025-08-13] MEDS: OLANZAPINE 5 MG TABLET PO SCH (08:22)
[2025-08-13] MEDS ORDERED: AMIODARONE 450 MG in IV D5W 241 ML IV PRN (12:00)
[2025-08-13] MEDS ORDERED: DOSING PER PHARMACY-AMIODARONE DRIP XX PRN (12:00)
[2025-08-13] MEDS: NOREPINEPHRINE 8 MG in IV NS 0.9% 242 ML IV PRN (12:28)
[2025-08-13] MEDS: AMIODARONE 150 MG in IV D5W 100 ML IV ONE (12:32)
[2025-08-13] MEDS: IV NS 0.9% 250 ML IV PRN (20:54)
[2025-08-14] VITALS (41 sets, daily range): BP systolic 86–134; BP diastolic 50–65; TEMP 98.4–99.1; O2SAT 95–99
[2025-08-14 04:59] LABS: CALCIUM, SERUM 9.6 mg/dL (8.5-10.1); CREATININE 6.9 mg/dL (0.6-1.3); SODIUM SERUM 138.0 mmol/L (136-145); UREA NITROGEN, BLOOD 42.0 mg/dL (7-18)
[2025-08-14] MEDS: NEOMY SULF/BACITRAC ZN/POLY 15 GM TUBE TP SCH (09:51)
[2025-08-15] VITALS: BP 100/78; TEMP 97.7; O2SAT 98
[2025-08-15 04:00] VITALS: BP 143/65; TEMP 97.8; O2SAT 100
[2025-08-15 06:48] LABS: PLATELET COUNT (AUTO) 233 K/uL (150-450); RED BLOOD CELL COUNT(AUTO) 3.42 MIL/uL (4.0-5.2); RED CELL DISTRIBUTION WIDTH 18.1 % (11.5-15.0); WHITE BLOOD COUNT (AUTO) 9.2 K/uL (4.3-11.0)
[2025-08-15 07:00] VITALS: BP 131/57; TEMP 97.5; O2SAT 98
[2025-08-15 07:35] LABS: CALCIUM, SERUM 9.6 mg/dL (8.5-10.1); SODIUM SERUM 135.0 mmol/L (136-145); UREA NITROGEN, BLOOD 58.0 mg/dL (7-18)
[2025-08-15 07:58] LABS: CREATININE 8.5 mg/dL (0.6-1.3)
[2025-08-15] MEDS: HYDROCORTISONE SOD SUCCINATE 100 MG/2 ML VIAL IV SCH (09:30)
[2025-08-15 12:55] VITALS: BP 119/64; TEMP 97.5; O2SAT 97
[2025-08-15] MEDS: SERTRALINE HCL 25 MG TABLET PO SCH (13:45)
[2025-08-15] MEDS: Z GUARD REMEDY 4 OZ OINT TP PRN (13:47)
[2025-08-15 16:00] VITALS: BP 137/58; TEMP 97.9; O2SAT 97
[2025-08-15 20:00] VITALS: BP 131/69; TEMP 98.8; O2SAT 97
[2025-08-16] VITALS: BP 103/58; TEMP 98.6; O2SAT 96
[2025-08-16 04:00] VITALS: BP 127/70; TEMP 98.2; O2SAT 96
[2025-08-16 07:28] LABS: CALCIUM, SERUM 9.8 mg/dL (8.5-10.1); CREATININE 5.2 mg/dL (0.6-1.3); SODIUM SERUM 141.0 mmol/L (136-145); UREA NITROGEN, BLOOD 29.0 mg/dL (7-18)
[2025-08-16 07:29] LABS: PLATELET COUNT (AUTO) 257 K/uL (150-450); RED BLOOD CELL COUNT(AUTO) 3.90 MIL/uL (4.0-5.2); RED CELL DISTRIBUTION WIDTH 18.7 % (11.5-15.0); WHITE BLOOD COUNT (AUTO) 6.6 K/uL (4.3-11.0)
[2025-08-16 08:00] VITALS: BP 139/65; TEMP 98.1; O2SAT 94
[2025-08-16] MEDS: HYDROCORTISONE SOD SUCCINATE 100 MG/2 ML VIAL IV SCH (12:06)
[2025-08-16 16:00] VITALS: BP 139/107; TEMP 98.6; O2SAT 94
[2025-08-16 20:00] VITALS: BP 137/63; TEMP 98.4; O2SAT 95
[2025-08-16 20:13] VITALS: BP 137/63; TEMP 98.4; O2SAT 95
[2025-08-17] VITALS: BP 131/63; TEMP 97.7; O2SAT 94
[2025-08-17 04:00] VITALS: BP 123/59; TEMP 97.7; O2SAT 94
[2025-08-17 07:00] VITALS: BP 122/62; TEMP 97.9; O2SAT 94
[2025-08-17 07:24] LABS: PLATELET COUNT (AUTO) 260 K/uL (150-450); RED BLOOD CELL COUNT(AUTO) 3.76 MIL/uL (4.0-5.2); RED CELL DISTRIBUTION WIDTH 17.9 % (11.5-15.0); WHITE BLOOD COUNT (AUTO) 9.5 K/uL (4.3-11.0)
[2025-08-17 07:33] LABS: CALCIUM, SERUM 10.0 mg/dL (8.5-10.1); CREATININE 7.0 mg/dL (0.6-1.3); SODIUM SERUM 140.0 mmol/L (136-145); UREA NITROGEN, BLOOD 47.0 mg/dL (7-18)
[2025-08-17 11:30] VITALS: BP 139/78; TEMP 97.3; O2SAT 96
[2025-08-17] MEDS: HYDROCORTISONE SOD SUCCINATE 100 MG/2 ML VIAL IV SCH (12:03)
[2025-08-17 16:00] VITALS: BP_SYST 115; BP_SYST 121; BP_DIAS 59; BP_DIAS 62; TEMP 97.7; O2SAT 97
[2025-08-17 20:00] VITALS: BP 146/63; TEMP 98.6; O2SAT 95
[2025-08-18] VITALS: BP 120/69; TEMP 98.1; O2SAT 98
[2025-08-18 04:00] VITALS: BP 152/65; TEMP 98.2; O2SAT 93
[2025-08-18 08:00] VITALS: BP_SYST 14; BP_SYST 147; BP_DIAS 78; TEMP 99; O2SAT 94
[2025-08-18 08:08] LABS: PLATELET COUNT (AUTO) 283 K/uL (150-450); RED BLOOD CELL COUNT(AUTO) 3.89 MIL/uL (4.0-5.2); RED CELL DISTRIBUTION WIDTH 17.6 % (11.5-15.0); WHITE BLOOD COUNT (AUTO) 9.7 K/uL (4.3-11.0)
[2025-08-18 08:42] LABS: CALCIUM, SERUM 10.0 mg/dL (8.5-10.1); CREATININE 4.3 mg/dL (0.6-1.3); SODIUM SERUM 143.0 mmol/L (136-145); UREA NITROGEN, BLOOD 26.0 mg/dL (7-18)
[2025-08-18 12:00] VITALS: BP 159/78; TEMP 98.8; O2SAT 96
[2025-08-18 16:00] VITALS: BP 109/77; TEMP 98.2; O2SAT 100
[2025-08-18 20:00] VITALS: BP 102/77; TEMP 98.4; O2SAT 95
[2025-08-19] VITALS: BP 101/78; TEMP 98.1; O2SAT 97
[2025-08-19 04:00] VITALS: BP 101/78; TEMP 98.1; O2SAT 97
[2025-08-19 07:57] LABS: PLATELET COUNT (AUTO) 279 K/uL (150-450); RED BLOOD CELL COUNT(AUTO) 3.87 MIL/uL (4.0-5.2); RED CELL DISTRIBUTION WIDTH 17.9 % (11.5-15.0); WHITE BLOOD COUNT (AUTO) 7.4 K/uL (4.3-11.0)
[2025-08-19 08:20] LABS: CALCIUM, SERUM 9.8 mg/dL (8.5-10.1); CREATININE 5.9 mg/dL (0.6-1.3); SODIUM SERUM 142.0 mmol/L (136-145); UREA NITROGEN, BLOOD 42.0 mg/dL (7-18)
[2025-08-19 08:22] VITALS: BP 160/63; TEMP 98.1; O2SAT 96
[2025-08-19 16:12] VITALS: BP 103/64; TEMP 98; O2SAT 97
[2025-08-19 17:23] VITALS: BP 132/69; TEMP 98.3; O2SAT 95
[2025-08-19 20:00] VITALS: BP 133/71; TEMP 98.1; O2SAT 96
[2025-08-20] VITALS: BP 158/79; TEMP 97.7; O2SAT 95
[2025-08-20 01:22] VITALS: BP 158/79; TEMP 97.7; O2SAT 95
[2025-08-20 04:00] VITALS: BP_SYST 121; BP_DIAS 73; BP_DIAS 75; TEMP 98.2; O2SAT 95; O2SAT 97
[2025-08-20 07:02] LABS: PLATELET COUNT (AUTO) 265 K/uL (150-450); RED BLOOD CELL COUNT(AUTO) 3.89 MIL/uL (4.0-5.2); RED CELL DISTRIBUTION WIDTH 18.4 % (11.5-15.0); WHITE BLOOD COUNT (AUTO) 8.0 K/uL (4.3-11.0)
[2025-08-20 07:23] LABS: CALCIUM, SERUM 10.0 mg/dL (8.5-10.1); CREATININE 4.2 mg/dL (0.6-1.3); SODIUM SERUM 140.0 mmol/L (136-145); UREA NITROGEN, BLOOD 28.0 mg/dL (7-18)
[2025-08-20] MEDS: SERTRALINE HCL 50 MG TABLET PO SCH (08:31)
[2025-08-20 09:35] VITALS: BP 142/65; TEMP 97.9; O2SAT 96
[2025-08-20 17:05] VITALS: BP 141/73; TEMP 98.8; O2SAT 98
[2025-08-20 20:00] VITALS: BP 130/71; TEMP 98.4; O2SAT 94; O2SAT 95
[2025-08-20] MEDS: POTASSIUM CHLORIDE 20 MEQ TAB.PRT.SR PO ONE (21:17)
[2025-08-21] VITALS: BP 94/64; TEMP 98.4; O2SAT 97
[2025-08-21 04:00] VITALS: BP 99/61; TEMP 97.7; O2SAT 97
[2025-08-21 07:34] LABS: PLATELET COUNT (AUTO) 313 K/uL (150-450); RED BLOOD CELL COUNT(AUTO) 3.95 MIL/uL (4.0-5.2); RED CELL DISTRIBUTION WIDTH 18.7 % (11.5-15.0); WHITE BLOOD COUNT (AUTO) 7.6 K/uL (4.3-11.0)
[2025-08-21 08:00] VITALS: BP 118/75; TEMP 97.9; O2SAT 98
[2025-08-21 09:08] LABS: CALCIUM, SERUM 9.9 mg/dL (8.5-10.1); CREATININE 6.3 mg/dL (0.6-1.3); SODIUM SERUM 140.0 mmol/L (136-145); UREA NITROGEN, BLOOD 51.0 mg/dL (7-18)
[2025-08-21 11:30] VITALS: BP 117/70; TEMP 97.5; O2SAT 96
[2025-08-21] MEDS ORDERED: PRED20TA PO (12:46)
[2025-08-21 16:00] VITALS: BP 121/69; TEMP 98.1; O2SAT 97
[2025-08-21 16:41] VITALS: BP 121/69
== END 2025-08-21 20:55 | DRG 424 ==
LOC: ER 19:18 → MEDSG1 20:23 → TELE1 21:21 → ICUOV 08-11 10:20 → ICU 08-11 10:37 → TELE1 08-12 18:17 → MEDSG1 08-13 09:32 → ICU 08-13 11:52 → MED 08-14 20:00 → TELE 08-14 20:30
PROVIDERS: ADMIT Nurse Practitioner Acute Care; ATTEND Internal Medicine
PROC: 5A1D70Z Performance of Urinary Filtration, Intermittent, Less than 6 Hours Per Day (ICD-10-PCS; principal; 2025-08-11)
PROC: 05HF33Z Insertion of Infusion Device into Left Cephalic Vein, Percutaneous Approach (ICD-10-PCS; 2025-08-13)
DX: E27.40 Unspecified adrenocortical insufficiency (principal); R57.8 Other shock; G92.8 Other toxic encephalopathy; I13.2 Hypertensive heart and chronic kidney disease with heart failure and with stage 5 chronic kidney disease, or end stage renal disease; D63.1 Anemia in chronic kidney disease; E87.20 Acidosis, unspecified; N18.6 End stage renal disease; Z99.2 Dependence on renal dialysis; E11.22 Type 2 diabetes mellitus with diabetic chronic kidney disease; F29 Unspecified psychosis not due to a substance or known physiological condition; I95.89 Other hypotension; I21.A1 Myocardial infarction type 2; E87.1 Hypo-osmolality and hyponatremia; E78.5 Hyperlipidemia, unspecified; E87.6 Hypokalemia; Z86.73 Personal history of transient ischemic attack (TIA), and cerebral infarction without residual deficits; Z91.158 Patient's noncompliance with renal dialysis for other reason; E83.89 Other disorders of mineral metabolism; R09.02 Hypoxemia
CPT/HCPCS: 36415; 70450-TC; 71045-TC; 80048-TC; 80076-TC; 80202-TC; 82533; 82962-TC; 83605-TC; 83735-TC; 84100-TC; 84484-TC; 85025-TC; 85730-TC; 87040-TC; 87081-TC; 90935-TC; 92526; 92611; A4216; A4223; A6403; G0378; J0282; J0692; J1720; J1815; J2405; J3373; J3490; J7030; J7040; J7050; J7060; P9047

== ENCOUNTER 2025-09-15 11:53 | Inpatient (IN) | payer MEDICAID ==
[~2025-09-15] VITALS: Ht 160 cm; Wt 64.4 kg
[~2025-09-15 11:53] MED LIST changes: +ACET325T53 PO; +ASPI-1169 PO; +BISA10SU11 RC; +DOCU100C36 PO; +FOLI0.8T23 PO; +HYDR-3972 PO; -LORA-259 PO; +MAGN400O6 PO; +MIDO10TA PO; +NA P133E RC; +NUT.237L85 PO; +OLAN7.5T3 PO; +PRED20TA PO; +SEVE800T8 PO
[2025-09-15] MEDS ORDERED: BALS60OI TP (13:03)
[2025-09-15] MEDS ORDERED: HYDR-4077 PO (13:03)
[2025-09-15] MEDS ORDERED: OMEP20CA15 PO (13:03)
[2025-09-15] MEDS ORDERED: ZINC220T4 PO (13:03)
[2025-09-15] MEDS ORDERED: SODI650T PO (13:03)
[2025-09-15] MEDS ORDERED: AMIN887L7 PO (13:03)
[2025-09-15] MEDS ORDERED: LISI10TA29 PO (13:03)
[2025-09-15] MEDS ORDERED: ASCO-352 PO (13:03)
[2025-09-15] MEDS ORDERED: ATOR40TA PO (13:03)
[2025-09-15 13:35] LABS: PLATELET COUNT (AUTO) 373 K/uL (150-450); RED BLOOD CELL COUNT(AUTO) 3.49 MIL/uL (4.0-5.2); RED CELL DISTRIBUTION WIDTH 21.7 % (11.5-15.0); WHITE BLOOD COUNT (AUTO) 10.2 K/uL (4.3-11.0)
[2025-09-15 13:47] LABS: INR 1.0 (0.91-1.10)
[2025-09-15 13:55] LABS: ASPARTATE AMINOTRANSFERASE 19 U/L (15-37); CALCIUM, SERUM 9.6 mg/dL (8.5-10.1); CREATININE 4.6 mg/dL (0.6-1.3); SODIUM SERUM 141 mmol/L (136-145); TOTAL PROTEIN, SERUM 8.0 g/dL (6.4-8.2); UREA NITROGEN, BLOOD 25 mg/dL (7-18)
[2025-09-15 13:56] LABS: NT-PRO BNP > 25000 pg/mL (0-125); PHOSPHORUS 2.9 mg/dL (2.5-4.9)
[2025-09-15 17:00] VITALS: BP 90/59; TEMP 98; O2SAT 99
[2025-09-15] MEDS ORDERED: Z GUARD REMEDY 4 OZ OINT TP PRN (17:00)
[2025-09-15] MEDS ORDERED: ONDANSETRON HCL/PF 4 MG/2 ML VIAL IVP PRN (17:00)
[2025-09-15] MEDS ORDERED: ZOLPIDEM TARTRATE 5 MG TABLET PO PRN (17:00)
[2025-09-15] MEDS: ACETAMINOPHEN 325 MG TABLET PO PRN (18:55)
[2025-09-15 20:00] VITALS: BP 106/61; TEMP 98.2; O2SAT 97
[2025-09-16] VITALS: BP 105/67; TEMP 98.8; O2SAT 96
[2025-09-16 04:12] VITALS: BP 103/64; TEMP 99; O2SAT 95
[2025-09-16 07:00] VITALS: BP 99/50; TEMP 99.1; O2SAT 99
[2025-09-16 07:35] LABS: PLATELET COUNT (AUTO) 331 K/uL (150-450); RED BLOOD CELL COUNT(AUTO) 3.32 MIL/uL (4.0-5.2); RED CELL DISTRIBUTION WIDTH 22.0 % (11.5-15.0); WHITE BLOOD COUNT (AUTO) 6.7 K/uL (4.3-11.0)
[2025-09-16] MEDS: PANTOPRAZOLE 40 MG TABLET.DR PO SCH (08:20)
[2025-09-16 08:30] LABS: CALCIUM, SERUM 9.6 mg/dL (8.5-10.1); CREATININE 5.7 mg/dL (0.6-1.3); PHOSPHORUS 3.1 mg/dL (2.5-4.9); SODIUM SERUM 139.0 mmol/L (136-145); UREA NITROGEN, BLOOD 34.0 mg/dL (7-18)
[2025-09-16] MEDS: POTASSIUM CHLORIDE 20 MEQ TAB.PRT.SR PO ONE (09:54)
[2025-09-16] MEDS: OLANZAPINE 5 MG TABLET PO SCH (13:52)
[2025-09-16 15:00] VITALS: BP 116/66; TEMP 98.1; O2SAT 98
[2025-09-16] MEDS ORDERED: OLANZAPINE 5 MG TABLET PO SCH (17:00)
[2025-09-16 22:11] VITALS: BP 120/73; TEMP 98.2; O2SAT 97
[2025-09-17] VITALS: BP 120/72; TEMP 98.8; O2SAT 96
[2025-09-17 04:00] VITALS: BP 130/79; TEMP 99.3; O2SAT 98
[2025-09-17 07:37] LABS: PLATELET COUNT (AUTO) 321 K/uL (150-450); RED BLOOD CELL COUNT(AUTO) 3.35 MIL/uL (4.0-5.2); RED CELL DISTRIBUTION WIDTH 22.4 % (11.5-15.0); WHITE BLOOD COUNT (AUTO) 5.4 K/uL (4.3-11.0)
[2025-09-17 07:56] LABS: ASPARTATE AMINOTRANSFERASE 13.0 U/L (15-37); CALCIUM, SERUM 9.2 mg/dL (8.5-10.1); CREATININE 3.6 mg/dL (0.6-1.3); PHOSPHORUS 2.0 mg/dL (2.5-4.9); SODIUM SERUM 143.0 mmol/L (136-145); TOTAL PROTEIN, SERUM 7.5 g/dL (6.4-8.2); UREA NITROGEN, BLOOD 20.0 mg/dL (7-18)
[2025-09-17 08:00] VITALS: BP 132/74; TEMP 98.2; O2SAT 98
[2025-09-17] MEDS: THERAHONEY GEL 1.5 OZ TUBE TP SCH (11:00)
[2025-09-17] MEDS: K PHOS NEUTRAL 250 MG TABLET PO ONE (16:03)
== END 2025-09-17 17:56 | DRG 143 ==
LOC: ER 12:45 → MED 16:06 → TELE 17:12 → MED 09-17
PROC: 5A1D70Z Performance of Urinary Filtration, Intermittent, Less than 6 Hours Per Day (ICD-10-PCS; principal; 2025-09-16)
DX: J81.0 Acute pulmonary edema (principal); G92.8 Other toxic encephalopathy; L89.153 Pressure ulcer of sacral region, stage 3; I21.A1 Myocardial infarction type 2; I12.0 Hypertensive chronic kidney disease with stage 5 chronic kidney disease or end stage renal disease; J81.1 Chronic pulmonary edema; D63.8 Anemia in other chronic diseases classified elsewhere; N18.6 End stage renal disease; Z99.2 Dependence on renal dialysis; E11.22 Type 2 diabetes mellitus with diabetic chronic kidney disease; F31.9 Bipolar disorder, unspecified; F03.93 Unspecified dementia, unspecified severity, with mood disturbance; Z86.73 Personal history of transient ischemic attack (TIA), and cerebral infarction without residual deficits; E78.5 Hyperlipidemia, unspecified; E87.6 Hypokalemia; I67.82 Cerebral ischemia; E83.89 Other disorders of mineral metabolism; E87.70 Fluid overload, unspecified
CPT/HCPCS: 36415; 71045-TC; 80048-TC; 80053-TC; 80076-TC; 83735-TC; 83880; 84100-TC; 84484-TC; 85025-TC; 85730-TC; 86850-TC; 90935-TC; 97112-TC; 97116-TC; 97530-TC; G0378